=== PATIENT | male | born 1965 | race Caucasian/White ===

== ENCOUNTER 2019-01-17 09:18 | Emergency (ER) | payer OTHER ==
[~2019-01-17] VITALS: Ht 152.4 cm; Wt 195.0 kg
[2019-01-17] MEDS ORDERED: ELIQUIS5 MG PO (09:33)
[2019-01-17] MEDS ORDERED: Carvedilol12.5 MG PO (09:33)
[2019-01-17] MEDS ORDERED: SPIR25 PO (09:33)
[2019-01-17] MEDS ORDERED: K-Dur10 MEQ PO (09:33)
[2019-01-17] MEDS ORDERED: MAGOXI400 PO (09:34)
[2019-01-17] MEDS ORDERED: LISI5 PO (09:34)
[2019-01-17] MEDS ORDERED: FURO40 PO (09:35)
[2019-01-17 10:20] LABS: BASOPHILS ABSOLUTE AUTO 0.02 K/mm3 (0.00-0.23); BASOPHILS PERCENT AUTO 0 % (0-2); EOSINOPHILS ABSOLUTE AUTO 0.17 K/mm3 (0.00-0.68); EOSINOPHILS PERCENT AUTO 3 % (0-6); Hematocrit 45.7 % (37.0-53.0); Hemoglobin 13.9 g/dL (13.5-17.5); IMMATURE GRAN ABSOLUTE AUTO 0.02 K/mm3 (0.00-0.10); IMMATURE GRAN PERCENT AUTO 0 % (0-1); LYMPHOCYTES ABSOLUTE AUTO 0.78 K/mm3 (0.84-5.20); LYMPHOCYTES PERCENT AUTO 12 % (21-46); MONOCYTES PERCENT AUTO 9 % (4-13); Mean Corpuscular HGB 32.6 pg (26.0-34.0); Mean Corpuscular HGB Conc 30.4 g/dL (31.5-36.5); Mean Corpuscular Volume 107 fL (80-100); Mean Platelet Volume 10.9 fL (9.1-12.4); NEUTROPHILS PERCENT AUTO 76 % (41-73); Platelet Count 193 K/mm3 (150-400); RDW Coefficient Variation 14.6 % (11.7-14.2); RDW Standard Deviation 56.7 fL (35.1-46.3); Red Blood Cell Count 4.27 M/mm3 (4.30-5.90); White Blood Cell Count 6.69 K/mm3 (4.00-11.30)
[2019-01-17 11:10] LABS: Alanine Aminotransfer (ALT/SGP 22 U/L (12-78); Albumin, Blood 3.2 g/dL (3.4-5.0); Albumin/Globulin Ratio 0.6 (0.8-1.8); Alk Phos 87 U/L (50-136); Anion Gap 3 mmol/L (6-16); Aspartate Aminotrans (AST/SGOT 18 U/L (12-37); Bilirubin, Total 0.7 mg/dL (0.1-1.0); Blood Urea Nitrogen 34 mg/dL (8-24); Bun/Creatinine Ratio 35.1 (12.0-20.0); CO2, Blood 33 mmol/L (21-32); Calcium, Blood 8.8 mg/dL (8.5-10.1); Chloride, Blood 102 mmol/L (98-108); Creatinine, Blood 0.97 mg/dL (0.60-1.20); Globulin, Blood 5.4 g/dL (2.2-4.0); Glomerular Filtration Rate >60 (60-); Glucose, Blood 160 mg/dL (70-99); Sodium, Blood 138 mmol/L (136-145); Total Protein, Blood 8.6 g/dL (6.4-8.2)
== END 2019-01-17 12:24 | disposition home or self-care (01) ==
LOC: ER 09:18
PROVIDERS: Emergency Medicine
DX: I11.0 Hypertensive heart disease with heart failure (principal); I50.9 Heart failure, unspecified; I48.91 Unspecified atrial fibrillation; Z79.899 Other long term (current) drug therapy; F17.220 Nicotine dependence, chewing tobacco, uncomplicated
CPT/HCPCS: 36415; 71046; 80053; 83735; 83880; 85025; 93005; 93010; 96374; 99284-25; J1940

== ENCOUNTER 2019-01-20 10:14 | Inpatient (IN) | payer OTHER ==
[~2019-01-20] VITALS: Ht 185.4 cm; Wt 221.5 kg
[~2019-01-20 10:14] MED LIST: Carvedilol12.5 MG PO; ELIQUIS5 MG PO; FURO40 PO; K-Dur10 MEQ PO; LISI5 PO; MAGOXI400 PO; SPIR25 PO
[2019-01-20 10:50] LABS: BASOPHILS ABSOLUTE AUTO 0.01 K/mm3 (0.00-0.23); BASOPHILS PERCENT AUTO 0 % (0-2); EOSINOPHILS ABSOLUTE AUTO 0.15 K/mm3 (0.00-0.68); EOSINOPHILS PERCENT AUTO 2 % (0-6); Hematocrit 42.9 % (37.0-53.0); Hemoglobin 13.1 g/dL (13.5-17.5); IMMATURE GRAN ABSOLUTE AUTO 0.04 K/mm3 (0.00-0.10); IMMATURE GRAN PERCENT AUTO 1 % (0-1); LYMPHOCYTES ABSOLUTE AUTO 0.76 K/mm3 (0.84-5.20); LYMPHOCYTES PERCENT AUTO 11 % (21-46); MONOCYTES ABSOLUTE AUTO 0.69 K/mm3 (0.16-1.47); MONOCYTES PERCENT AUTO 10 % (4-13); Mean Corpuscular HGB 32.3 pg (26.0-34.0); Mean Corpuscular HGB Conc 30.5 g/dL (31.5-36.5); Mean Corpuscular Volume 106 fL (80-100); Mean Platelet Volume 10.8 fL (9.1-12.4); NEUTROPHILS ABSOLUTE AUTO 5.55 K/mm3 (1.96-9.15); NEUTROPHILS PERCENT AUTO 77 % (41-73); Platelet Count 176 K/mm3 (150-400); RDW Coefficient Variation 14.4 % (11.7-14.2); RDW Standard Deviation 56.6 fL (35.1-46.3); Red Blood Cell Count 4.05 M/mm3 (4.30-5.90)
[2019-01-20 11:13] LABS: Alanine Aminotransfer (ALT/SGP 27 U/L (12-78); Albumin, Blood 3.1 g/dL (3.4-5.0); Albumin/Globulin Ratio 0.6 (0.8-1.8); Alk Phos 85 U/L (50-136); Anion Gap 3 mmol/L (6-16); Aspartate Aminotrans (AST/SGOT 25 U/L (12-37); Bilirubin, Total 0.6 mg/dL (0.1-1.0); Blood Urea Nitrogen 31 mg/dL (8-24); Bun/Creatinine Ratio 31.5 (12.0-20.0); CO2, Blood 33 mmol/L (21-32); Calcium, Blood 8.6 mg/dL (8.5-10.1); Chloride, Blood 100 mmol/L (98-108); Creatinine, Blood 0.98 mg/dL (0.60-1.20); Globulin, Blood 5.1 g/dL (2.2-4.0); Glomerular Filtration Rate >60 (60-); Glucose, Blood 157 mg/dL (70-99); Sodium, Blood 136 mmol/L (136-145); Total Protein, Blood 8.2 g/dL (6.4-8.2); Troponin I <0.015 ng/mL (0.000-0.040)
--- NOTE | 2019-01-20 16:22 | NUR ---
PT ADMITTED PT ADMITTED IN STABLE CONDITION. VSS. PT ALERT & ORIENTED. PT & ORIENTED TO ROOM. CALL LIGHT IN REACH. PT DENIES OTHER NEEDS AT THIS TIME.
--- NOTE | 2019-01-20 18:25 | NUR ---
SHIFT SUMMARY NO CHANGES IN ASSESSMENT AT THIS TIME. VSS. WILL CONTINUE TO MONITOR UNTIL TURNOVER IS COMPLETE.
--- NOTE | 2019-01-21 01:01 | NUR ---
PATIENT HAS HAD TWO TELE EVENTS DROPPING IN TO A HR OF 35-39. FIRST TIME WAS SLEEPING AND AWOKE AND WENT BACK INTO THE 80'S. PATIENT NOW DROPPED TO 35-39 AND WENT RIGHT BACK INTO THE 90'S. PATIENT OBSERVED SLEEPING AND ROLLED TO HIS SIDE. SPOUSE PRESENT IN ROOM. PATIENT HAD REFUSED HIS CPAP THIS EVENING. WILL CONTINUE TO MONITOR.
--- NOTE | 2019-01-21 02:38 | NUR ---
EMPLOYMENT PROGRAMS ANALYST REPORTS HR INTO THE 30'S AND RIGHT BACK INTO THE 80'S REPORTING TO NURSE. WILL CONTINUE TO MONITOR.
--- NOTE | 2019-01-21 03:15 | NUR ---
MAIL HANDLER ASSISTANT REPORTS DROP IN HR INTO 20-30'S AND BACK WITH 4.2 SEC PAUSE TO 80'S RT CALLED IN TO SET UP HOSPITAL CPAP. RT PRESENT IN ROOM. WILL CONTINUE TO MONITOR.
--- NOTE | 2019-01-21 04:12 | NUR ---
SHIFT SUMMARY PATIENT HR DROPPED TO 35-39 X THREE WITH THE LONGEST PAUSE APPROX 10-15 SECONDS AND BACK INTO THE 80'S. ONE HR DROP WENT DOWN INTO THE 20'S FOR 4.2 SECOND AND BACK INTO THE 80'S. PATIENT HAD REFUSED TO WEAR CPAP FOR SLEEP. PATIENT WAS SLEEPING DURING THE EVENTS AND WAS STERNAL RUB TO AWAKEN. PATIENT REPORTS BEING IN A DEEP SLEEP. PATIENT EDUCATED TO WEAR CPAP AND RT NOTIFIED AND SETUP FOR PATIENT. ON CONTINUOUS PULSE OXIMETRY. AXOX 4 AND INDEPENDENT IN THE ROOM. PIV REMAINS INTACT. REPORTED BACK PAIN X ONE AND RECEIVED TYLENOL PER EMAR. MORBID OBESITY. ORTHOPHOTOGRAPHY TECHNICIAN REPORTS A-FIB PVC AVERAGE 80'S. SPOUSE PRESENT T/O SHIFT. CALL LIGHT IN REACH. BED IN LOWEST POSITION. WILL CONTINUE TO MONITOR UNTIL DAY SHIFT NURSE ASSUMES CARE.
[2019-01-21 05:53] LABS: Anion Gap 3 mmol/L (6-16); Blood Urea Nitrogen 31 mg/dL (8-24); Bun/Creatinine Ratio 28.2 (12.0-20.0); CO2, Blood 34 mmol/L (21-32); Calcium, Blood 8.5 mg/dL (8.5-10.1); Chloride, Blood 100 mmol/L (98-108); Glomerular Filtration Rate >60 (60-); Glucose, Blood 126 mg/dL (70-99); Potassium, Blood 4.5 mmol/L (3.5-5.5); Sodium, Blood 137 mmol/L (136-145)
--- NOTE | 2019-01-21 13:41 | NUR ---
PHYLICIA EPISODE PT HEART RATE DROPPED TO THE 30S AT 1335. PT SATS ALSO IN THE 80S AT THIS TIME. PT WAS WOKE UP & CPAP MASK READJUSTED. PT HR & SATS INCREASED TO NORMAL LIMITS AT THIS TIME. WILL CONTINUE TO MONITOR.
--- NOTE | 2019-01-21 17:33 | NUR ---
SHIFT SUMMARY THIS RN NOTICES A SLIGHT DIFFERENCE IN SWELLING OF PT ARMS/HANDS. PT STATES HE CAN TELL WELL. NYSTATIN ORDERED FOR YEAST IN ABD FOLDS. PT SCHEDULED TO BE TRANSFERED TO ROOM 310 FOR LARGER SHOWER & A BARIATRIC BED. NO OTHER CHANGES IN ASSESSMENT AT THIS TIME. VSS. WILL CONTINUE TO MONITOR UNTIL TURNOVER IS COMPLETE.
[2019-01-21 23:45] LABS: Magnesium, Blood 2.2 mg/dL (1.6-2.4)
[2019-01-21 23:46] LABS: Potassium, Blood 4.4 mmol/L (3.5-5.5)
--- NOTE | 2019-01-22 00:08 | NUR ---
AT APPROX 2245 PT PHYLICIA'D DOWN TO THE 30'S AND HAD AN 8-9 SECOND PAUSE. ALMOST IMMEDIATELY AFTER PT HAD ANOTHER 5 SECOND PAUSE. AFTER PT RETURNED TO AFIB IN THE 70'S. AGAIN AT 2315 AND 2350 AND 0000 PT PHYLICIA'D DOWN INTO THE 30'S AND HAD 3-4 SECOND PAUSES. NOTIFIED BOTH FREEDMAN PIN CHASER INITIALLY WHO ORDERED TO STOP COREG AND HAVE STAT MAG AND K DRAWN. AND DR. BAY LATER. DR. BAY STATED THAT PT PROBABLY DOES THIS ALL THE TIME AT HOME AND JUST TO KEEP MONITORING AT THIS TIME. MAG AND K WNL.
--- NOTE | 2019-01-22 05:16 | NUR ---
SHIFT SUMMARY PT TRANSFERED FROM ROOM 328 DUE TO NEEDING A LARGER SHOWER. LARGER BARIATRIC BED ALSO PLACED IN ROOM FOR PT. PT IS MORBIDLY OBESE. PT MUCH MORE COMFORTABLE THIS EVENING SLEEPING BUT STRUGGLED TO GET OUT OF THE BED THIS AM. AIR DEFLATED FROM MATTRESS PER REQUEST OF PATIENT. WHILE SLEEPING PT HAD SEVERAL EPISODES OF BRADYCARDIA IN THE 30'S AND THEN PT WOULD PAUSE. SEE PREVIOUS NOTE. LAST PAUSE AT APPROX 0000. MD AWARE. PT ONLY HAD 500 ML'S OF URINE OUT THIS EVENING. AND ONLY REPORTING VOIDING ONE TIME BEFORE PT TRANSFERED TO NEW ROOM. LUNGS SOUND CLEAR. PT DENIES ANY PAIN OR SOB. WORE CPAP THROUGH MOST OF THE NIGHT. CONTINUOUS BIOX ON. VSS. WILL CONTINUE TO MONITOR AND REPORT TO DAY RN.
[2019-01-22 05:49] LABS: International Normalized Ratio 1.08; Prothrombin Time Results 11.4 Sec (9.7-11.5)
[2019-01-22 06:07] LABS: Albumin, Blood 2.8 g/dL (3.4-5.0); Anion Gap 3 mmol/L (6-16); Blood Urea Nitrogen 33 mg/dL (8-24); Bun/Creatinine Ratio 30.8 (12.0-20.0); CO2, Blood 34 mmol/L (21-32); Calcium, Blood 8.5 mg/dL (8.5-10.1); Chloride, Blood 100 mmol/L (98-108); Creatinine, Blood 1.07 mg/dL (0.60-1.20); Glomerular Filtration Rate >60 (60-); Glucose, Blood 130 mg/dL (70-99); Phosphorus, Blood 4.2 mg/dL (2.5-4.9); Potassium, Blood 4.6 mmol/L (3.5-5.5); Sodium, Blood 137 mmol/L (136-145)
--- NOTE | 2019-01-22 10:21 | NUR ---
07:16- PER PCU EXPLOSIVE SPECIALIST THE PATIENT TELEMETY SHOWS AFIB AT 82 BPM. 07:30- PER PCU EXPLOSIVE SPECIALIST THE PATIENT'S TELEMETRY SHOWS A R-R OF 3.457 SEC PAUSE. 09:30- PER PCU EXPLOSIVE SPECIALIST THE PATIENT'S TELEMETRY SHOWS A R-R OF 3.816 SEC PAUSE. AT THE TIMES OF THE PAUSES, THE PATIENT HAD HIS CPAP ON, SLEEPING. HIS WAS AT THE BEDSIDE AND THE PCU EXPLOSIVE SPECIALIST CALLED TO NOTIFY THE RN. CONTINUOUS PULSE OXIMETRY IS IN PLACE.
--- NOTE | 2019-01-22 17:37 | NUR ---
PATIENT IS ALERT AND ORIENTED AND COOPERATIVE WITH CARE. NO COMPLAINTS OF PAIN. THE PATIENT HAS BEEN AT THE BEDSIDE ALL THROUGHOUT THE DAY, ASSISTING WITH HIS CARE. TELE IS IN PLACE WITH CONTINUOUS PULSE OXIMETRY. PCU TRAINING AND DEVELOPMENT DIRECTOR ALERTED THE RN THAT THE PATIENT HEART RHYTHM PAUSED TWICE FOR GREATER THAN 3 SECONDS THIS MORNING WHILE THE PATIENT WAS SLEEPING. OTHER THAN THOSE TWO EPISODES, THE PATIENT HAS BEEN AFIB BETWEEN 82-97 BPM PER PCU TRAINING AND DEVELOPMENT DIRECTOR. PATIENT WEARS THE CPAP WHILE SLEEPING. THE PATIENTS ASSISTS WITH CARING FOR THE PATIENT AND MEASURES HIS URINE AND HELPS HIM UP TO THE BATHROOM. WILL CONTINUE TO MONITOR.
[2019-01-23 04:45] LABS: BASOPHILS ABSOLUTE AUTO 0.02 K/mm3 (0.00-0.23); BASOPHILS PERCENT AUTO 0 % (0-2); EOSINOPHILS ABSOLUTE AUTO 0.21 K/mm3 (0.00-0.68); EOSINOPHILS PERCENT AUTO 3 % (0-6); Hemoglobin 12.6 g/dL (13.5-17.5); IMMATURE GRAN ABSOLUTE AUTO 0.02 K/mm3 (0.00-0.10); IMMATURE GRAN PERCENT AUTO 0 % (0-1); LYMPHOCYTES PERCENT AUTO 10 % (21-46); MONOCYTES ABSOLUTE AUTO 0.84 K/mm3 (0.16-1.47); MONOCYTES PERCENT AUTO 10 % (4-13); Mean Corpuscular HGB 32.5 pg (26.0-34.0); Mean Corpuscular HGB Conc 30.7 g/dL (31.5-36.5); Mean Corpuscular Volume 106 fL (80-100); Mean Platelet Volume 10.7 fL (9.1-12.4); NEUTROPHILS ABSOLUTE AUTO 6.17 K/mm3 (1.96-9.15); NEUTROPHILS PERCENT AUTO 77 % (41-73); Platelet Count 168 K/mm3 (150-400); RDW Standard Deviation 54.9 fL (35.1-46.3); Red Blood Cell Count 3.88 M/mm3 (4.30-5.90); White Blood Cell Count 8.06 K/mm3 (4.00-11.30)
--- NOTE | 2019-01-23 04:59 | NUR ---
SHIFT SUMMARY NO ACUTE CHANGES THIS SHIFT. PT PLEASANT AND COOPERATIVE. DENIES ANY SOB OR PAIN. REMAINS EDEMATOUS THROUGHOUT BUT APPEARS TO BE SLOWLY IMPROVING. TELEMETRY UNIT REMAINS IN PLACE, AFIB IN THE 70'S-80'S. PT WORE CPAP THROUGHOUT THE NIGHT. AT BEDSIDE. VSS. WILL CONTINUE TO MONITOR AND REPORT TO DAY RN.
[2019-01-23 05:01] LABS: Albumin, Blood 2.7 g/dL (3.4-5.0); Anion Gap 1 mmol/L (6-16); Blood Urea Nitrogen 31 mg/dL (8-24); Bun/Creatinine Ratio 31.4 (12.0-20.0); CO2, Blood 37 mmol/L (21-32); Calcium, Blood 8.4 mg/dL (8.5-10.1); Chloride, Blood 99 mmol/L (98-108); Creatinine, Blood 0.99 mg/dL (0.60-1.20); Glomerular Filtration Rate >60 (60-); Glucose, Blood 125 mg/dL (70-99); Phosphorus, Blood 3.8 mg/dL (2.5-4.9); Potassium, Blood 4.2 mmol/L (3.5-5.5); Sodium, Blood 137 mmol/L (136-145)
--- NOTE | 2019-01-23 18:01 | NUR ---
SHIFT SUMMARY NO CHANGES IN ASSESSMENT AT THIS TIME. VSS. PT DIURESSING WELL. ASSISTED WITH URINAL BY AT BEDSIDE. ABD FOLDS CLEANED & NYSTATIN APPLIED. NO TELE EVENTS THIS SHIFT. WILL CONTINUE TO MONITOR UNTIL TURNOVER IS COMPLETE.
--- NOTE | 2019-01-24 04:23 | NUR ---
SHIFT SUMMARY PT HAD UNEVENTFUL NIGHT. WOKE AT APPROX 0300 WITH A HEADACHE. MEDICATED W/ 650 MG TYLENOL. HEADACHE IMPROVED BUT PT HAS BEEN UNABLE TO GET BACK TO SLEEP YET. WHILE SLEEPING PT HAS WORN HIS CPAP. O2 SATS HAVE MAINTAINED ABOVE 90% AND PT HAS HAD NO CARDIAC EVENTS ON HIS TELEMETRY. PT VOIDING WELL. DENIES SOB. EDEMA TO BLE'S AND BUE'S CONTINUES TO IMPROVE. VERY LITTLE EDEMA REMAINS IN BUE'S. VSS. WILL CONTINUE TO MONITOR.
[2019-01-24 05:02] LABS: Anion Gap 1 mmol/L (6-16); Blood Urea Nitrogen 29 mg/dL (8-24); Bun/Creatinine Ratio 29.6 (12.0-20.0); CO2, Blood 39 mmol/L (21-32); Calcium, Blood 8.1 mg/dL (8.5-10.1); Chloride, Blood 98 mmol/L (98-108); Creatinine, Blood 0.98 mg/dL (0.60-1.20); Glomerular Filtration Rate >60 (60-); Glucose, Blood 141 mg/dL (70-99); Potassium, Blood 4.2 mmol/L (3.5-5.5); Sodium, Blood 138 mmol/L (136-145)
--- NOTE | 2019-01-24 06:25 | NUR ---
PAUSES PT THIS AM AT APPROX 0610 AND 0625 HAD A LITTLE OVER A 3 SECOND PAUSE AT EACH TIME AFTER HEART RATE BECOMING BRADYCARDIC IN THE 30'S. FOLLOWING PT IMMEDIATELY CAME BACK UP TO THE 70'S-80'S WITH RHYTHM CONTINUING TO BE AFIB. CPAP WAS ON, PT WAS SLEEPING AND ASYMPTOMATIC. CPAP ADJUSTED ON FACE. WILL CONTINUE TO MONITOR.
--- NOTE | 2019-01-24 16:57 | NUR ---
SHIFT SUMMARY 53 YR OLD MALE ADMITTED FOR ACUTE CHF EXACERBATION. FULL CODE. MONITORED VIA TELEMETRY (A FIB @ 76 BPM). HE MAY NEED A CPAP @ HOME. HAS EPISODES OF BRADYCARDIA FOLLOWED BY PAUSES. CONSULTING LENS COATING TECHNICIAN STATED TODAY THAT THIS IS NOT CONCERNING. HE DID STATE THAT THE PT MAY NEED A PACEMAKER IN 5-10 YRS. LASIX IS GIVEN TWICE A DAY, METALAZONE IN THE AM TO DIURESE THE PT. CARDIAC DIET. CPAP WHEN SLEEPING. HX: CHF, AFIB, HTN, SLEEP APNEA.
[2019-01-25 05:16] LABS: Anion Gap 1 mmol/L (6-16); Blood Urea Nitrogen 27 mg/dL (8-24); Bun/Creatinine Ratio 27.7 (12.0-20.0); CO2, Blood 40 mmol/L (21-32); Calcium, Blood 8.7 mg/dL (8.5-10.1); Chloride, Blood 94 mmol/L (98-108); Creatinine, Blood 0.98 mg/dL (0.60-1.20); Glomerular Filtration Rate >60 (60-); Glucose, Blood 122 mg/dL (70-99); Sodium, Blood 135 mmol/L (136-145)
--- NOTE | 2019-01-25 07:44 | NUR ---
01/25/19 0630 PT CHEERFUL AND HAS BEEN ON CPAP MOST OF NIGHT. STATES GENERALLY FEELING BETTER. STAYED WITH HIM ALL NIGHT. VITALS STABLE.
--- NOTE | 2019-01-25 16:17 | NUR ---
SHIFT SUMMARY 53 YR OLD MALE ADMITTED FOR ACUTE CHF EXACERBATION. FULL CODE. PLAN IS TO DIURESE THE PT AND THEN DC. ON ROOM AIR BY DAY, CPAP AT NIGHT. PT HAS APPOINTMENT TO SET UP PCP WHO WILL THEN REFER HIM FOR A SLEEP STUDY TO GET A CPAP AT HOME. CARVEDILOL INCREASED TO 12.5 MG TODAY. ZAROXOLYN FOR SWELLING (CHF), AND LASIX FOR DIURESING. BLISTERS ON LLE ARE IMPROVING DRAMATICALLY. PT IS MORBIDLY OBESE. SOB W/AMBULATION. STANDBY ASSIST TO BATHROOM. REDNESS IN SKIN FOLDS UNDER PANNUS AND GROIN AREA. ON TELEMETRY (AFIB @ 77 BPM). HX: CHF, AFIB, HTN, SLEEP APNEA
--- NOTE | 2019-01-26 04:12 | NUR ---
01/26/19 0415 AWAKE AND WATCHING TV. DENIES ANY S/S OR DICOMFORT. VITALS AND HEART MONITOR REMAIN STABLE. CPAP WAS ON EARLIER WHEN HE WAS SLEEPING. UNEVENTFUL NIGHT.
[2019-01-26 05:02] LABS: BASOPHILS ABSOLUTE AUTO 0.03 K/mm3 (0.00-0.23); BASOPHILS PERCENT AUTO 0 % (0-2); EOSINOPHILS ABSOLUTE AUTO 0.33 K/mm3 (0.00-0.68); EOSINOPHILS PERCENT AUTO 4 % (0-6); Hematocrit 42.1 % (37.0-53.0); Hemoglobin 13.2 g/dL (13.5-17.5); IMMATURE GRAN ABSOLUTE AUTO 0.02 K/mm3 (0.00-0.10); IMMATURE GRAN PERCENT AUTO 0 % (0-1); LYMPHOCYTES ABSOLUTE AUTO 0.94 K/mm3 (0.84-5.20); LYMPHOCYTES PERCENT AUTO 12 % (21-46); MONOCYTES ABSOLUTE AUTO 0.75 K/mm3 (0.16-1.47); MONOCYTES PERCENT AUTO 10 % (4-13); Mean Corpuscular HGB 32.9 pg (26.0-34.0); Mean Corpuscular HGB Conc 31.4 g/dL (31.5-36.5); Mean Corpuscular Volume 105 fL (80-100); Mean Platelet Volume 11.2 fL (9.1-12.4); NEUTROPHILS PERCENT AUTO 74 % (41-73); Platelet Count 179 K/mm3 (150-400); RDW Coefficient Variation 13.4 % (11.7-14.2); RDW Standard Deviation 52.1 fL (35.1-46.3); Red Blood Cell Count 4.01 M/mm3 (4.30-5.90); White Blood Cell Count 7.87 K/mm3 (4.00-11.30)
[2019-01-26 05:16] LABS: Anion Gap 2 mmol/L (6-16); Blood Urea Nitrogen 31 mg/dL (8-24); Bun/Creatinine Ratio 30.4 (12.0-20.0); CO2, Blood 39 mmol/L (21-32); Calcium, Blood 8.3 mg/dL (8.5-10.1); Chloride, Blood 96 mmol/L (98-108); Creatinine, Blood 1.02 mg/dL (0.60-1.20); Glomerular Filtration Rate >60 (60-); Glucose, Blood 129 mg/dL (70-99); Magnesium, Blood 1.9 mg/dL (1.6-2.4); Sodium, Blood 137 mmol/L (136-145)
[2019-01-26] MEDS ORDERED: MAGOX 400400 MG PO (11:45)
[2019-01-26] MEDS ORDERED: Bumetanide2 MG PO (11:45)
[2019-01-26] MEDS ORDERED: METO5 PO (11:47)
[2019-01-26] MEDS ORDERED: Nystop60 GM (11:49)
[2019-01-26] MEDS ORDERED: ENTRESTO 49 MG1 EACH PO (11:50)
[2019-01-26] MEDS ORDERED: SPIR25 PO (11:53)
[2019-01-26] MEDS ORDERED: ACET325 PO (11:59)
--- NOTE | 2019-01-26 13:11 | NUR ---
DISCHARGE SUMMARY DEMETRIO IS READY FOR DISCHARGE. WALKED IN HALLWAY WITH WALKER ON ROOM AIR AND DID WELL WITHOUT DYSPNEA. PIV REMOVED, TELE REMOVED. WORE CPAP HS. ON FLUID RESTRICTION AND DOING WELL WITH IT. GIVEN LOTS OF EDUCATION ON DAILY WEIGHING HIMSELF, THE IMPORTANCE OF FOLLOW UP APPOINTMENTS, AND MINIMIZING SALT INTAKE. DENIES PAIN. SBA TO BR. AT BS. BEING DISCHARGED W HH. LEAVING VIA WC WITH WITH DC PAPERWORK
== END 2019-01-26 13:47 | disposition home or self-care (01) | DRG 291 ==
LOC: ER 10:14 → ERHOLD 13:23 → MEDS 13:23 → ENPENDDIS 01-26 09:15 → MEDS 01-26 13:47
PROVIDERS: Emergency Medicine; Hospitalist; Internal Medicine; Nurse Practitioner Acute Care; ADMIT Family Medicine
DX: I11.0 Hypertensive heart disease with heart failure (principal); I50.21 Acute systolic (congestive) heart failure; Z87.891 Personal history of nicotine dependence; E66.01 Morbid (severe) obesity due to excess calories; I48.2 Chronic atrial fibrillation; Z79.01 Long term (current) use of anticoagulants; G47.33 Obstructive sleep apnea (adult) (pediatric)
CPT/HCPCS: 36415; 71046; 80048; 80053; 80069; 83036; 83735; 83880; 84132; 84484; 85025; 85610; 93005; 93010; 93306; 93970; 94660; 94664; 94760; 94762; 98960; 99285-25; A9270; J1940

== ENCOUNTER 2022-08-13 08:17 | Inpatient (IN) | payer OTHER ==
[~2022-08-13] VITALS: Ht 188 cm; Wt 161.5 kg
[~2022-08-13 08:17] MED LIST changes: +ACET325 PO; +AZIT250 PO; +Bumetanide2 MG PO; +ELIQUIS5 M2 PO; +ENTRESTO 49 MG1 EACH PO; +MAGOX 400400 MG PO; +METO5 PO; +Nystop60 GM
[2022-08-13 09:18] LABS: BASOPHILS ABSOLUTE AUTO 0.03 K/mm3 (0.00-0.23); BASOPHILS PERCENT AUTO 0 % (0-2); EOSINOPHILS ABSOLUTE AUTO 0.08 K/mm3 (0.00-0.68); EOSINOPHILS PERCENT AUTO 1 % (0-6); Hematocrit 50.3 % (37.0-53.0); Hemoglobin 17.1 g/dL (13.5-17.5); IMMATURE GRAN ABSOLUTE AUTO 0.04 K/mm3 (0.00-0.10); IMMATURE GRAN PERCENT AUTO 1 % (0-1); LYMPHOCYTES ABSOLUTE AUTO 0.99 K/mm3 (0.84-5.20); LYMPHOCYTES PERCENT AUTO 13 % (21-46); MONOCYTES ABSOLUTE AUTO 0.39 K/mm3 (0.16-1.47); MONOCYTES PERCENT AUTO 5 % (4-13); Mean Corpuscular HGB 32.7 pg (26.0-34.0); Mean Corpuscular Volume 96 fL (80-100); Mean Platelet Volume 11.2 fL (9.1-12.4); NEUTROPHILS ABSOLUTE AUTO 6.05 K/mm3 (1.96-9.15); NEUTROPHILS PERCENT AUTO 80 % (41-73); Platelet Count 197 K/mm3 (150-400); RDW Coefficient Variation 13.2 % (11.7-14.2); Red Blood Cell Count 5.23 M/mm3 (4.30-5.90); White Blood Cell Count 7.58 K/mm3 (4.00-11.30)
[2022-08-13 09:40] LABS: Albumin, Blood 3.2 g/dL (3.4-5.0); Albumin/Globulin Ratio 0.8 (0.8-1.8); Bilirubin, Total 1.3 mg/dL (0.1-1.0); Bun/Creatinine Ratio 33.6 (12.0-20.0); Calcium, Blood 8.6 mg/dL (8.5-10.1); Creatinine, Blood 1.16 mg/dL (0.60-1.20); Globulin, Blood 3.8 g/dL (2.2-4.0); Potassium, Blood 4.1 mmol/L (3.5-5.5)
--- NOTE | 2022-08-13 18:02 | NUR ---
PT ARRIVED TO THE FLOOR. ORIENTED TO THE ROOM. AT BEDSIDE.
--- NOTE | 2022-08-14 04:48 | NUR ---
A&OX4, PLEASANT, UP FREQUENTLY TO TOILET TO VOID DUE TO DIURETICS. PT A FIB WITH PHYLICIA SUSTAINING IN 50S AND DROPPING TO LOW 30S. MD NOTIFIED, ADJUSTED MORNING DOSE OF COREG. PER PATIENT, THIS HAPPENED DURING PREVIOUS ADMISSION WELL. CALLS APPROPRIATELY, UP AD MARISELA, TOLERATING CARES.
[2022-08-14 05:31] LABS: Hematocrit 45.7 % (37.0-53.0); Hemoglobin 15.6 g/dL (13.5-17.5); Mean Corpuscular HGB 32.5 pg (26.0-34.0); Mean Corpuscular HGB Conc 34.1 g/dL (31.5-36.5); Mean Corpuscular Volume 95 fL (80-100); Mean Platelet Volume 11.5 fL (9.1-12.4); Platelet Count 171 K/mm3 (150-400); RDW Coefficient Variation 13.1 % (11.7-14.2); RDW Standard Deviation 45.8 fL (35.1-46.3); White Blood Cell Count 6.99 K/mm3 (4.00-11.30)
[2022-08-14 06:37] LABS: Bun/Creatinine Ratio 35.7 (12.0-20.0); Calcium, Blood 8.3 mg/dL (8.5-10.1); Creatinine, Blood 1.12 mg/dL (0.60-1.20); Potassium, Blood 3.3 mmol/L (3.5-5.5)
--- NOTE | 2022-08-14 11:00 | NUR ---
Echocardiogram using 0.75ml of Definity contrast performed.
--- NOTE | 2022-08-14 16:14 | NUR ---
ASSUMED CARE OF PT FROM SURJIT GONZALES, AT ABOUT 1545.
--- NOTE | 2022-08-14 17:54 | NUR ---
SHIFT SUMMARY AFTER RESUMING CARE OF THE PT, NO ACUTE CHANGES HAVE OCCURRED. PT IS RESTING IN HIS ROOM WITH HIS , WATCHING MOVIES. HE HAS HAD NO C/O P/N/V. HE ALSO HAS NO C/O CHEST PAIN OR SOB. WILL REPORT TO ONCOMING NURSE.
--- NOTE | 2022-08-15 01:37 | NUR ---
NOTIFIED BY [employer] @ 0127 THAT PT HAD 3.94 SEC PAUSE ON MONITOR. A FEW MINUTES LATER PT HAD A A COUPLE SECOND RUN IN MID/HIGH 20'S. PT WAS CHECKED ON BOTH TIMES AND WAS ASYMPTOMATIC. VICENTE.
--- NOTE | 2022-08-15 04:34 | NUR ---
SHIFT SUMMARY NOC PT A/O X 4. PT HERE FOR CHF EXCASERBATION AND IS BEING DIURESED. PT IS ON TELE RUNNING AFIB WITH PVC'S @ 79 BPM. NOTIFIED BY MAGNETIC RESONANCE IMAGING COORDINATOR DURING SHIFT THAT PT HAD A 3.94 SEC PAUSE FOLLOWED BY SINUS PHYLICIA IN MID/HIGH 20'S. CHECKED ON PT AND PT WAS EASILY AROUSABLE AND ASYMPTOMATIC. PT HAD COREG D/C DURING DAY SHIFT. PT HAS RESTARTED ELIQUIS AFTER NOT TAKING FOR PREVIOUS 3-4 DAYS DUE TO LOSING INSURANCE. PT HAD XRAY WHICH SHOWED POSSIBLE BILATERAL ATRIAL THROMBI, BUT CT SCAN SHOWED NONE. PT ALSO HAS REDNESS UNDER PANNUS AND RX POWDER OBTAINED. PT PLEASANT AND COOPERATIVE WITH CARE WITH AT BEDSIDE DURING SHIFT. PT DAILY WT IS 161.5KG. PT CURRENTLY IN RESTING IN BED WITH BED IN LOWEST POSITION, AND CALL LIGHT WITHIN REACH. WCTM.
[2022-08-15 06:03] LABS: Bun/Creatinine Ratio 33.1 (12.0-20.0); Calcium, Blood 8.3 mg/dL (8.5-10.1); Potassium, Blood 3.6 mmol/L (3.5-5.5)
--- NOTE | 2022-08-15 17:34 | NUR ---
SHIFT SUMMARY NO ACUTE CHANGES DURING SHIFT. PT ALERT AND ORIENTED, CALLS APPROPRIATELY. PT REMAINS ON RA, SPO2 > 92%. PT INDEPENDENT IN ROOM. PT REMAINS AFIB 80'S ON TELE MONITOR. MEDICATED X 1 WITH TYLENOL FOR HEADACHE, EFFECTIVE. PT RECEIVING IV BUMEX BID. WILL CONTINUE TO MONITOR. CALL LIGHT WITHIN REACH.
--- NOTE | 2022-08-16 06:26 | NUR ---
DICTATING MACHINE TRANSCRIBER SUMMARY PT A/OX4. PLEASANT AND COOPERATIVE WITH CARE. SBP 93 AT BEGINNING OF SHIFT. CALL TO --HELD THE PM ENTRESTO; SEE NURSE NOTE. AM BP 105/90. MULTIPLE NOTIFICATIONS FROM TELE MONITOR TO REPORT PAUSES AND DROP IN RATE. PT AFIB W/PVC'S; 5.75 PAUSE; 3.24 PAUSE; PHYLICIA IN THE 20'S AND 30'S; 5 RUN EPISODE OF VTACH. PT DENIES CHEST PAIN/PRESSURE AND REMAINS ASYMPTOMATIC. PT ON STRICT I & 0'S. IS AT BEDSIDE. THIS AM PT COMPLAINING OF WORSENING RASH IN GROIN AND ASKING FOR ADDITIONAL MEDS; ADVISED I WOULD PASS INFORMATION ON TO DAY SHIFT NURSE. CALL LIGHT ACCESSIBLE.
[2022-08-16] MEDS ORDERED: ENTRESTO 49 MG1 EACH PO (14:24)
[2022-08-16] MEDS ORDERED: ALBU90OI INH (14:26)
--- NOTE | 2022-08-16 15:11 | NUR ---
DISCHARGE: PT DISCHARGED AT 1500 WITH IN AUTOMOBILE. ALL DISCHARGE INSTRUCTIONS GONE OVER WITH PT AND . BOTH STATED THEY UNDERSTOOD BOTH THE MEDICATION INSTRUCTIONS AND [place] FOLLOW-UP APPOINTMENT TO BE MADE. TELE D/C. IV TAKEN OUT BY MARTY RODARTE W/O COMPLICATIONS. BOTH PT AND STATED TO TELL EVERYONE HOW MUCH THEY APPRECIATED THE CARE THEY RECEIVED.
== END 2022-08-16 14:58 | disposition home or self-care (01) | DRG 291 ==
LOC: ER 08:17 → MEDS 08:18
PROVIDERS: Family Medicine; Nurse Practitioner Acute Care; Physician Assistant; ADMIT Internal Medicine
DX: I11.0 Hypertensive heart disease with heart failure (principal); I50.23 Acute on chronic systolic (congestive) heart failure; I48.20 Chronic atrial fibrillation, unspecified; Z68.42 Body mass index [BMI] 45.0-49.9, adult; G47.33 Obstructive sleep apnea (adult) (pediatric); I51.3 Intracardiac thrombosis, not elsewhere classified; R77.8 Other specified abnormalities of plasma proteins; E66.01 Morbid (severe) obesity due to excess calories; I49.3 Ventricular premature depolarization; I45.5 Other specified heart block; Z79.01 Long term (current) use of anticoagulants; Z79.899 Other long term (current) drug therapy; Z79.2 Long term (current) use of antibiotics; Z87.891 Personal history of nicotine dependence
CPT/HCPCS: 36415; 71046; 71260; 80048; 80053; 83880; 84443; 84484; 85025; 85027; 85379; 93005; 93010; 96374-59; 99285-25; A9270; C8929; G0378; Q9957; Q9967

== ENCOUNTER → 2022-10-29 | Outpatient (CLI) | payer OTHER ==
[~2022-10-29] MED LIST changes: +ALBU90OI INH
[2022-10-29 15:49] LABS: BASOPHILS ABSOLUTE AUTO 0.02 K/mm3 (0.00-0.23); BASOPHILS PERCENT AUTO 0 % (0-2); EOSINOPHILS ABSOLUTE AUTO 0.05 K/mm3 (0.00-0.68); EOSINOPHILS PERCENT AUTO 1 % (0-6); Hematocrit 44.3 % (37.0-53.0); Hemoglobin 14.7 g/dL (13.5-17.5); IMMATURE GRAN ABSOLUTE AUTO 0.02 K/mm3 (0.00-0.10); IMMATURE GRAN PERCENT AUTO 0 % (0-1); LYMPHOCYTES ABSOLUTE AUTO 0.86 K/mm3 (0.84-5.20); LYMPHOCYTES PERCENT AUTO 12 % (21-46); MONOCYTES ABSOLUTE AUTO 0.47 K/mm3 (0.16-1.47); MONOCYTES PERCENT AUTO 7 % (4-13); Mean Corpuscular HGB 31.4 pg (26.0-34.0); Mean Corpuscular HGB Conc 33.2 g/dL (31.5-36.5); Mean Corpuscular Volume 95 fL (80-100); Mean Platelet Volume 11.5 fL (9.1-12.4); NEUTROPHILS ABSOLUTE AUTO 5.81 K/mm3 (1.96-9.15); NEUTROPHILS PERCENT AUTO 80 % (41-73); Platelet Count 182 K/mm3 (150-400); RDW Coefficient Variation 14.6 % (11.7-14.2); Red Blood Cell Count 4.68 M/mm3 (4.30-5.90); White Blood Cell Count 7.23 K/mm3 (4.00-11.30)
[2022-10-29 16:58] LABS: Very Low Density Lipoprot Chol 10 mg/dL (6-32)
[2022-10-29 16:59] LABS: Alanine Aminotransfer (ALT/SGP 43 U/L (12-78); Albumin, Blood 3.6 g/dL (3.4-5.0); Albumin/Globulin Ratio 0.8 (0.8-1.8); Alk Phos 94 U/L (50-136); Anion Gap 4 mmol/L (6-16); Aspartate Aminotrans (AST/SGOT 28 U/L (12-37); Bilirubin, Total 1.1 mg/dL (0.1-1.0); Blood Urea Nitrogen 41 mg/dL (8-24); Bun/Creatinine Ratio 48.2 (12.0-20.0); CO2, Blood 26 mmol/L (21-32); Chloride, Blood 107 mmol/L (98-108); Cholesterol 155 mg/dL (50-200); Creatinine, Blood 0.85 mg/dL (0.60-1.20); Globulin, Blood 4.3 g/dL (2.2-4.0); Glomerular Filtration Rate 101 (60-); Glucose, Blood 131 mg/dL (70-99); HDL Cholesterol 51 mg/dL (>39); LDL/HDL RATIO 1.8; Low Density Lipoprotein Chol 94 mg/dL (0-110); Potassium, Blood 3.6 mmol/L (3.5-5.5); Sodium, Blood 137 mmol/L (136-145); Total Protein, Blood 7.9 g/dL (6.4-8.2); Triglycerides 52 mg/dL (30-160)
== END | disposition home or self-care (01) ==
LOC: LAB 12:15 → LAB SHORT 12:15
PROVIDERS: Family Medicine
DX: Z00.00 Encounter for general adult medical examination without abnormal findings (principal); Z13.6 Encounter for screening for cardiovascular disorders
CPT/HCPCS: 80053; 80061; 85025

== ENCOUNTER 2023-07-04 09:51 | Inpatient (IN) | payer OTHER ==
[~2023-07-04] VITALS: Ht 185.4 cm; Wt 214.0 kg
[~2023-07-04 09:51] MED LIST changes: +BUME2 PO; +BUMETANIDE2 M6 PO; +Cyclobenzaprine5 MG; +FLUO10 PO; +METO25ER; +NYSTATIN500000 UNI; +TAMS.4ER PO
[2023-07-04 10:39] LABS: BASOPHILS ABSOLUTE AUTO 0.03 K/mm3 (0.00-0.23); BASOPHILS PERCENT AUTO 0 % (0-2); EOSINOPHILS ABSOLUTE AUTO 0.08 K/mm3 (0.00-0.68); EOSINOPHILS PERCENT AUTO 1 % (0-6); Hematocrit 42.5 % (37.0-53.0); Hemoglobin 13.7 g/dL (13.5-17.5); IMMATURE GRAN ABSOLUTE AUTO 0.04 K/mm3 (0.00-0.10); IMMATURE GRAN PERCENT AUTO 1 % (0-1); LYMPHOCYTES ABSOLUTE AUTO 0.57 K/mm3 (0.84-5.20); LYMPHOCYTES PERCENT AUTO 8 % (21-46); MONOCYTES ABSOLUTE AUTO 0.61 K/mm3 (0.16-1.47); MONOCYTES PERCENT AUTO 8 % (4-13); Mean Corpuscular HGB 32.5 pg (26.0-34.0); Mean Corpuscular HGB Conc 32.2 g/dL (31.5-36.5); Mean Corpuscular Volume 101 fL (80-100); Mean Platelet Volume 10.1 fL (9.1-12.4); NEUTROPHILS ABSOLUTE AUTO 6.13 K/mm3 (1.96-9.15); NEUTROPHILS PERCENT AUTO 82 % (41-73); Platelet Count 196 K/mm3 (150-400); RDW Coefficient Variation 15.6 % (11.7-14.2); RDW Standard Deviation 58.1 fL (35.1-46.3); Red Blood Cell Count 4.21 M/mm3 (4.30-5.90); White Blood Cell Count 7.46 K/mm3 (4.00-11.30)
[2023-07-04 11:20] LABS: Albumin, Blood 2.9 g/dL (3.4-5.0); Albumin/Globulin Ratio 0.6 (0.8-1.8); Bilirubin, Total 1.4 mg/dL (0.1-1.0); Calcium, Blood 8.4 mg/dL (8.5-10.1); Creatinine, Blood 1.2 mg/dL (0.60-1.20); Globulin, Blood 4.7 g/dL (2.2-4.0); Potassium, Blood 3.9 mmol/L (3.5-5.5); Total Protein, Blood 7.6 g/dL (6.4-8.2)
[2023-07-04 16:51] VITALS: BP 100/64
--- NOTE | 2023-07-04 18:09 | NUR ---
SHIFT/ADMISSION SUMMARY Received pt from ED at 1530 via [facility] transport awake and alert x4. Pt able to get self up to recliner. Increased dyspnea noted. Generalized pitting edema. Unable to obtain accurate BP via machine. Manual BP obtained. Resp even nonlabored at rest on RA. Lung sounds diminished right lobe. Thoracentesis ordered. Pt and states last Eliquis 12/14 pm. Bariatric bed in room. Oriented to room and call light. at bedside. Home Cpap at bedside.
[2023-07-05 04:45] VITALS: BP 96/76
[2023-07-05 05:52] LABS: BASOPHILS ABSOLUTE AUTO 0.03 K/mm3 (0.00-0.23); BASOPHILS PERCENT AUTO 0 % (0-2); EOSINOPHILS PERCENT AUTO 1 % (0-6); Hematocrit 37.9 % (37.0-53.0); Hemoglobin 12.2 g/dL (13.5-17.5); IMMATURE GRAN ABSOLUTE AUTO 0.04 K/mm3 (0.00-0.10); IMMATURE GRAN PERCENT AUTO 1 % (0-1); LYMPHOCYTES ABSOLUTE AUTO 0.54 K/mm3 (0.84-5.20); LYMPHOCYTES PERCENT AUTO 7 % (21-46); MONOCYTES ABSOLUTE AUTO 0.74 K/mm3 (0.16-1.47); MONOCYTES PERCENT AUTO 10 % (4-13); Mean Corpuscular HGB 31.9 pg (26.0-34.0); Mean Corpuscular HGB Conc 32.2 g/dL (31.5-36.5); Mean Corpuscular Volume 99 fL (80-100); Mean Platelet Volume 10.2 fL (9.1-12.4); NEUTROPHILS ABSOLUTE AUTO 6.03 K/mm3 (1.96-9.15); NEUTROPHILS PERCENT AUTO 81 % (41-73); Platelet Count 189 K/mm3 (150-400); RDW Coefficient Variation 15.4 % (11.7-14.2); RDW Standard Deviation 56.2 fL (35.1-46.3); Red Blood Cell Count 3.83 M/mm3 (4.30-5.90); White Blood Cell Count 7.48 K/mm3 (4.00-11.30)
[2023-07-05 06:19] LABS: Bun/Creatinine Ratio 47.4 (12.0-20.0); Calcium, Blood 8.5 mg/dL (8.5-10.1); Creatinine, Blood 1.14 mg/dL (0.60-1.20); Potassium, Blood 3.9 mmol/L (3.5-5.5)
[2023-07-05 07:11] VITALS: BP 97/71
[2023-07-05 08:59] LABS: International Normalized Ratio 1.17; Prothrombin Time Results 12.2 Sec (9.7-11.5)
[2023-07-05] MEDS ORDERED: NYAMYC15 G1 TOP (09:49)
[2023-07-05] MEDS ORDERED: METO25ER PO (09:52)
[2023-07-05 15:00] VITALS: BP 105/73
--- NOTE | 2023-07-05 17:15 | NUR ---
SHIFT SUMMARY Pt remains A&O x3. VSS. Pain to edematous BLE managed with current regime. Generalized edema ongoing. Encourage to elevate extremities/ sit in bariatric recliner. Lung sounds diminished, greater on right. On RA. Able to get to BSC from bariatric bed with 1 person ast. BM this am. Voiding per urinal. Continue to monitor and diurese.
[2023-07-05 19:17] VITALS: BP 94/54
[2023-07-06] VITALS (8 sets, daily range): BP systolic 94–127; BP diastolic 62–95
--- NOTE | 2023-07-06 03:49 | NUR ---
END OF SHIFT SUMMARY PT A&O x4, VSS, AFEBRILE. PT ADMITTED FOR SOB, AND GENERALIZED ANASARCA. BP HAS BEEN TAKEN MANUALLY FOR BEST RESULTS. PT'S L LOWER EXTREMITY HAS A SMALL BLISTER FILLED WITH FLUID WHICH HAS BEEN WEEPING SEROUS DRAINAGE. L LOWER LEG WAS CLEANSED WITH NS, PAT DRY AND COVERED WITH EXU-DRY WRAPPED WITH GAUZE. LOWER EXTREMITIES ELEVATED. PT C/O DISCOMFORT TO BILAT LEGS. PRN TRAMADOL GIVEN AND EFFECTIVE. PT DENIED CHEST PAIN, NO SOB. PT'S ROOMING IN OVERNIGHT. PT ABLE TO MAKE NEEDS KNOWN. CALL LIGHT WITHIN REACH, WCTM.
[2023-07-06 05:57] LABS: BASOPHILS ABSOLUTE AUTO 0.02 K/mm3 (0.00-0.23); BASOPHILS PERCENT AUTO 0 % (0-2); EOSINOPHILS ABSOLUTE AUTO 0.14 K/mm3 (0.00-0.68); EOSINOPHILS PERCENT AUTO 2 % (0-6); Hematocrit 37.3 % (37.0-53.0); Hemoglobin 12.4 g/dL (13.5-17.5); IMMATURE GRAN ABSOLUTE AUTO 0.03 K/mm3 (0.00-0.10); IMMATURE GRAN PERCENT AUTO 0 % (0-1); LYMPHOCYTES ABSOLUTE AUTO 0.68 K/mm3 (0.84-5.20); LYMPHOCYTES PERCENT AUTO 10 % (21-46); MONOCYTES ABSOLUTE AUTO 0.79 K/mm3 (0.16-1.47); MONOCYTES PERCENT AUTO 11 % (4-13); Mean Corpuscular HGB 32.6 pg (26.0-34.0); Mean Corpuscular HGB Conc 33.2 g/dL (31.5-36.5); Mean Corpuscular Volume 98 fL (80-100); NEUTROPHILS ABSOLUTE AUTO 5.25 K/mm3 (1.96-9.15); NEUTROPHILS PERCENT AUTO 76 % (41-73); Platelet Count 182 K/mm3 (150-400); RDW Coefficient Variation 15.4 % (11.7-14.2); White Blood Cell Count 6.91 K/mm3 (4.00-11.30)
[2023-07-06 06:22] LABS: Bun/Creatinine Ratio 47.8 (12.0-20.0); Calcium, Blood 8.3 mg/dL (8.5-10.1); Creatinine, Blood 1.15 mg/dL (0.60-1.20); Potassium, Blood 3.5 mmol/L (3.5-5.5)
[2023-07-06] MEDS ORDERED: ALBU90OI INH (13:21)
[2023-07-06] MEDS ORDERED: INCRUSE ELLIPTA INH (13:25)
--- NOTE | 2023-07-06 18:14 | NUR ---
SHIFT SUMMARY- PT ALERT AND ORIENTED, SPOUSE AT THE BEDSIDE TO HELP WITH THE URINAL. PT IS BEING DIURESED MUCH HIS BP WILL ALLOW. MORNING DIURETIC HELD PER PARAMETERS. SPOKE TO MD BP WAS HIGH ENOUGH TO TAKE BUMEX EARLY FOR THE NOON DOSE, ORDER RECIEVED TO GIVE IT A LITTLE EARLY. BP WAS 110 THIS EVENING AND PT RECIEVED HIS EVENING DOSE. PT IN BED, CALL LIGHT IN REACH NO S&S OF DISTRESS NOTED. PAIN SEEMS WELL MANAGED WITH TRAMADOL PRN. SPOUSE AT THE BEDSIDE AND IS VERY INVOLVED WITH THE PT CARE. SHE HELPS HIM WITH THE URINAL AND WRITES THE VOLUME ON THE WHITE BOARD FOR STAFF TO DOCUMENT.
[2023-07-07 02:34] VITALS: BP 113/67
[2023-07-07 06:58] LABS: Bun/Creatinine Ratio 45.1 (12.0-20.0); Calcium, Blood 8.5 mg/dL (8.5-10.1); Creatinine, Blood 1.13 mg/dL (0.60-1.20); Potassium, Blood 3.2 mmol/L (3.5-5.5)
[2023-07-07 07:50] VITALS: BP 119/81
[2023-07-07] MEDS ORDERED: ENTRESTO 24 MG1 EACH PO (09:18)
[2023-07-07 13:50] VITALS: BP 108/66
--- NOTE | 2023-07-07 14:00 | NUR ---
PT HAD AN EVENT CAUSING A NEAR FALL- PT STATED HE NEEDE TO USE THE BSC. SPOUSE ASSISTED HIM TO GET THE COMMODE READY. PT IS A 1PA WITH TRANSFERS. PT STOOD TO PIVOT TRANSFER AND SIT ON THE COMMODE, HE SAID HE FELT DIZZY AND LEANED ON THE BED BRIEFLY. THE BED BREAKS ON THE BARIATRIC BED POPPED LOOSE AND THE BED BEGAN TO ROLL CAUSING THE PT LEFT FOOT TO SLIP UNDERNEATH THE COMMODE. NOW THE PT BOTTOM IS ON THE COMMODE AND ARMS ARE ON THE BED. MULTPILE STAFF ASSISTED TO GET THE PT INTO A LIFT SLING AND GET HIM SAFELY BACK TO THE BED. PT HAS HAD FLUID LEAKING FROM HIS LEFT COOL, A RESULT THE SKIN IS MORE FRAGILE, HE NOW HAS A SMALL QUARTER SIZED SKIN TEAR ON THE LEFT COOL IN THE AREA OF THE LEAK. MD ARRIVED AT THE BEDSIDE AND WITNESSED SOME OF THE EVENTS STAFF ATTEMPTED TO GET THE PT TO A SAFE LOCATION. VS CHECKED ONCE THE PT WAS BACK TO BED, DRESSING REPLACED ON THE PT LEFT COOL. NO CURRENT S&S OF DISTRESS. RN OCTOBER TO RESUME CARE OF PT AT THIS TIME.
[2023-07-07 16:21] VITALS: BP 114/69
[2023-07-07 19:21] VITALS: BP 125/80
--- NOTE | 2023-07-07 20:01 | NUR ---
SHIFT SUMMARY PATIENT WITH NEAR FALL THIS AFTERNOON WHILE THIS REMOTE SENSING PROGRAM MANAGER WAS AT A CLASS. SKIN TEAR TO LEFT LOWER LEG. NO OTHER INJURIES NOTED. PATIENT DESCRIBED SOME DIZZINESS UPON STANDING. BED IN LOW POSITION, CALL LIGHT IN REACH. HE IS ABLE TO MAKE NEEDS KNOWN.
[2023-07-08] VITALS (11 sets, daily range): BP systolic 83–126; BP diastolic 63–75
--- NOTE | 2023-07-08 05:24 | NUR ---
SHIFT SUMMARY - NO ACUTE CHANGES THROUGHOUT THIS SHIFT. PT REPORTED HE WANTED TO MAKE SURE HE RECEIVED HIS DIURETICS ON TIME TODAY, YESTERDAY HE DECLINED HIS LAST DOSE, IT WAS "TOO LATE IN THE EVENING." HE REPORTED HE "DIDN'T WANT TO BE UP ALL NIGHT." PT VOICED IMPROVEMENT IN EDEMA TO HIS BLE, RIGHT ARM, AND HANDS. SIGNIFICANT OTHER STAYED THE NIGHT LAST NIGHT. PT HAD ONE LOOSE BM AT THE BEGINNING OF THE SHIFT, AND WAS ABLE TO MINIMALLY ASSIST WITH TURNING FOR CLEANING - REQUIRED 3 STAFF IN THE ROOM FOR ASSISTANCE. CALL LIGHT WITHIN REACH. BED IN LOW POSITION. FLUIDS AT BEDSIDE. WILL CONTINUE TO MONITOR UNTIL AM SHIFT CHANGE.
[2023-07-08 06:15] LABS: Bun/Creatinine Ratio 44.1 (12.0-20.0); Calcium, Blood 8.3 mg/dL (8.5-10.1); Creatinine, Blood 1.18 mg/dL (0.60-1.20); Potassium, Blood 3.1 mmol/L (3.5-5.5)
--- NOTE | 2023-07-08 18:47 | NUR ---
SHIFT SUMMARY- D/T SAFETY ISSUES THE PT [facility] AM. WITHIN AN HOUR THE PT WAS C/O PAIN IN HIS BOTTOM, AND NUMBNESS AND TINGLING IN HIS LEGS. THE PT REQUESTED ANOTHER AIR BED. GIVEN THE PT STATUS WITH FLUID OVERLOAD AND VERY WEAK SKIN, HE WOULD BENIFIT FROM THE AIR BED, HOWEVER THERE IS NOT A BARRIATRIC VERSION OF THIS BED. SPOKE TO DR KINGSTON, PT WILL LIKELY BE HERE FOR ANOTHER TWO DAYS OR MORE. CALLED [employer] FOR ASSISTANCE LOCATING A BED. AN AIR MATRESS THAT WILL FIT THE FRAME OF THE BEDS CURRENTLY HERE HAS BEEN ORDERED AND SHOULD ARRIVE ROUGHLY BEFORE NOON TOMORROW. IN THE MEAN TIME THE PT HAS A PINK FOAM MATRESS COVER AND MULTPILE PILLOWS TO HELP ELEVATE THE EXTREMITIES. PT WAS SEEN BY CARDIOLOGY TODAY WHO
[2023-07-08 22:04] LABS: U Amphetamine Screen Not Detected; U Barbituate Screen Not Detected; U Benzodiazapine Screen Not Detected; U Buprenorphine Screen Not Detected; U Cannabinoids Screen Not Detected; U Cocaine Screen Not Detected; U Methadone Screen Not Detected; U Methamphetamine Screen Not Detected; U Opiates Screen Not Detected; U Oxycodone Screen Not Detected; U Phencyclidine Screen Not Detected
[2023-07-09 03:55] VITALS: BP 93/69
--- NOTE | 2023-07-09 05:55 | NUR ---
SHIFT SUMMARY. PATIENT IS A/OX4. PATIENT IN GOOD SPIRITS TONIGHT, AND PLEASANT. PATIENT NEEDS ASSISTANCE WITH URINATING- HAS HELPED PATIENT WITH URINAL T/O NIGHT. PATIENT CALL WHEN NEEDING TO USE THE BED GRIMALDO. PER REPORT FROM DAY SHIFT PATIENT STARTED TO NOT FEEL WELL ON THE COMMODE DURING THE DAY AND OPTED TO USE THE BEDPAN. PATIENT IS A TWO PERSON ASSIST WITH LIFT FOR BEDPAN. PATIENT CALLS APPROPRIATELY AND IS ABLE TO MAKE HIS NEEDS KNOWN. PATIENT IS TO BE RECEIVING NEW AIR BED MATTRESS TO FIT PATIENTS BED-CURRENT BED HAS BEEN ALARMING AND UNCOMFORTABLE, HAS EGG-CRATE PAD ON BED. PATIENTS LEFT LEG HAS BEEN LEAKING-EXU DRY AND GAUZE WRAP APPLIED AND CHANGED NEEDED. PALLIATIVE CONSULT WAS PUT IN YESTERDAY FOR CONSULT TODAY PER REPORT. PATIENT HAD SMALL PANIC ATTACK WHEN LAYING BACK TO ADJUST LIFT SHEET-PATIENT WAS ABLE TO SIT UP AND SELF SOOTHE-OFFERED THERAPUETIC COMMUNICATION AND LISTENING TO PATIENT. BED IS LOCKED IN THE LOWEST POSITION W/CALL LIGHT IN REACH.
[2023-07-09 06:21] LABS: Bun/Creatinine Ratio 42.7 (12.0-20.0); Calcium, Blood 8.3 mg/dL (8.5-10.1); Creatinine, Blood 1.31 mg/dL (0.60-1.20); Potassium, Blood 3.3 mmol/L (3.5-5.5)
[2023-07-09 07:42] VITALS: BP 93/79
--- NOTE | 2023-07-09 13:41 | NUR ---
Met with pt and twice today, but necessary care interrupted both times. The patient and his asked this RN both times to "Please return". I assured them I will.
[2023-07-09 15:12] VITALS: BP 89/68
--- NOTE | 2023-07-09 17:43 | NUR ---
SUMMARY- PT AAOX4 THIS SHIFT. LIFT ASSIST ONLY. PT'S BED CHANGED OUT THIS SHIFT TO NEW RENTAL BARIATRIC AIR BED. PT COMPLAINED OF BILAT LEG PAIN-CONTROLLED WITH EMAR MEDS.
[2023-07-09 19:34] VITALS: BP 136/57
[2023-07-10] VITALS (9 sets, daily range): BP systolic 63–119; BP diastolic 40–81
--- NOTE | 2023-07-10 03:39 | NUR ---
PT BLOOD PRESSURE WAS LOW THIS MORNING WHEN AIDE CHECKED IN ON RIGHT ARM. 68/54. I WENT INTO ROOM AND RECHECKED WITH A SMALLER CUFF THAT FIT HIS RIGHT ARM BETTER. IT WAS 73/40. PT USUALLY KEEPS THIS ARM ELEVATED ABOVE HIS HEAD WHEN HE SLEEPS AND HE STATES THAT HIS RIGHT ARM EVEN AT HOME IS LOWER THAN HIS LEFT ARM READINGS. LEFT ARM IS LARGER COMPARED TO RIGHT ARM WHICH HE STATES IS ALSO HIS NORM. CHECKED BLOOD PRESSURE ON LEFT UPPER ARM AND HIS READING WAS 104/73. PT STATES HE DOES NOT FEELL LIGHT HEADED AT ALL, PAIN TO LEFT ELBOW WITH ICY HOT PATCH IN PLACE.CALL LIGHT IN REACH. CARE CONTINUES
[2023-07-10 05:26] LABS: BASOPHILS ABSOLUTE AUTO 0.03 K/mm3 (0.00-0.23); BASOPHILS PERCENT AUTO 0 % (0-2); EOSINOPHILS ABSOLUTE AUTO 0.28 K/mm3 (0.00-0.68); EOSINOPHILS PERCENT AUTO 3 % (0-6); Hematocrit 36.3 % (37.0-53.0); IMMATURE GRAN ABSOLUTE AUTO 0.04 K/mm3 (0.00-0.10); IMMATURE GRAN PERCENT AUTO 0 % (0-1); LYMPHOCYTES ABSOLUTE AUTO 0.54 K/mm3 (0.84-5.20); LYMPHOCYTES PERCENT AUTO 6 % (21-46); MONOCYTES ABSOLUTE AUTO 1.07 K/mm3 (0.16-1.47); MONOCYTES PERCENT AUTO 11 % (4-13); Mean Corpuscular HGB 32.3 pg (26.0-34.0); Mean Corpuscular HGB Conc 33.1 g/dL (31.5-36.5); Mean Corpuscular Volume 98 fL (80-100); Mean Platelet Volume 10.1 fL (9.1-12.4); NEUTROPHILS ABSOLUTE AUTO 7.61 K/mm3 (1.96-9.15); NEUTROPHILS PERCENT AUTO 80 % (41-73); Platelet Count 162 K/mm3 (150-400); RDW Coefficient Variation 15.2 % (11.7-14.2); RDW Standard Deviation 54.5 fL (35.1-46.3); Red Blood Cell Count 3.72 M/mm3 (4.30-5.90); White Blood Cell Count 9.57 K/mm3 (4.00-11.30)
[2023-07-10 05:53] LABS: Bun/Creatinine Ratio 45.6 (12.0-20.0); Calcium, Blood 8.2 mg/dL (8.5-10.1); Creatinine, Blood 1.14 mg/dL (0.60-1.20); Percent Saturation 15.5 % (20.0-50.0); Potassium, Blood 3.4 mmol/L (3.5-5.5)
--- NOTE | 2023-07-10 16:16 | NUR ---
SHIFT SUMMARY: PATIENT A/OX4, ANSWER TO QUESTIONS APPROPRIATELY, PLEASANT AND COOPERATIVE c CARE. PATIENT CODE STATUS CHANGED TO DNR PER PATIENT REQUEST AND SPOUSE AT BEDSIDE. PATIENT REFUSED TO WEAR DNR PURPLE ARM BRACELET, PER PATIENT "IT'S A NEW AND DIFFICULT DECISION TO ME AND MY , I DON'T LIKE TO BE IN A CONSTANT REMINDING BY WEARING THAT BAND, IF YOU DON'T MIND I DON'T LIKE TO WEAR IT FOR NOW." THIS RN EDUCATE PATIENT BY USING THERAPIUTIC COMMUNICATION AND ACTIVE LISTENING TO HIS NEEDS. PATIENT IS APOLOGETIC, AND VERBALIZES UNDERSTANDING. DNR ARM BAND HANG OUTSIDE PATIENT ROOM. PATIENT DENIES CP/PRESSURE, SOB, DIZZINESS AND N/V. SBP IN THE 109-115 RANGES TAKEN ON L ARM, RECEIVED SCHEDULED MIDODRINE DOSE. PATIENT AND AT BEDSIDE REFUSED SCHEDULED AM DOSE OF ENTRESTO AND METOPROLOL. THIS RN EDUCATED PATIENT/ THE RISK AND BENEFITS OF REFUSING THE DOSE, BUT STILL CONTINUE TO REFUSED. PATIENT STILL ON TELE, AFIB HR IN THE 90'S-110'S THIS SHIFT. PT WORK c PATIENT MOBILITY IN BED TODAY, PATIENT WAS NOT ABLE TO TOLERATE SITTING UP D/T WEAKNESS, PT RECOMMENDED SNF. PATIENT IS CONT/INCON OF BOWELS/BLADDER USES URINAL c ASSISTANCE AND BEDPAN c 2-3 MAX ASSIST TO ROLL TO HIS SIDE AND USES LIFT c REPOSITIONING. PATIENT RECEIVED SCHEDULED MEDS PER EMAR. PIV TO LAC SALINE LOCKED. CALL LIGHT IN REACH.
[2023-07-11 02:29] VITALS: BP 104/60
[2023-07-11 05:42] LABS: BASOPHILS ABSOLUTE AUTO 0.04 K/mm3 (0.00-0.23); BASOPHILS PERCENT AUTO 1 % (0-2); EOSINOPHILS ABSOLUTE AUTO 0.32 K/mm3 (0.00-0.68); EOSINOPHILS PERCENT AUTO 4 % (0-6); Hematocrit 36.7 % (37.0-53.0); Hemoglobin 11.8 g/dL (13.5-17.5); IMMATURE GRAN ABSOLUTE AUTO 0.05 K/mm3 (0.00-0.10); IMMATURE GRAN PERCENT AUTO 1 % (0-1); LYMPHOCYTES ABSOLUTE AUTO 0.63 K/mm3 (0.84-5.20); LYMPHOCYTES PERCENT AUTO 7 % (21-46); MONOCYTES ABSOLUTE AUTO 1.16 K/mm3 (0.16-1.47); MONOCYTES PERCENT AUTO 13 % (4-13); Mean Corpuscular HGB 32.3 pg (26.0-34.0); Mean Corpuscular HGB Conc 32.2 g/dL (31.5-36.5); Mean Corpuscular Volume 101 fL (80-100); Mean Platelet Volume 10.3 fL (9.1-12.4); NEUTROPHILS ABSOLUTE AUTO 6.52 K/mm3 (1.96-9.15); NEUTROPHILS PERCENT AUTO 75 % (41-73); Platelet Count 141 K/mm3 (150-400); RDW Coefficient Variation 15.1 % (11.7-14.2); RDW Standard Deviation 56.5 fL (35.1-46.3); Red Blood Cell Count 3.65 M/mm3 (4.30-5.90); White Blood Cell Count 8.72 K/mm3 (4.00-11.30)
[2023-07-11 06:39] LABS: Bun/Creatinine Ratio 45.6 (12.0-20.0); Calcium, Blood 8.1 mg/dL (8.5-10.1); Creatinine, Blood 1.14 mg/dL (0.60-1.20); Potassium, Blood 3.7 mmol/L (3.5-5.5)
[2023-07-11 08:02] VITALS: BP 131/97
[2023-07-11 13:07] VITALS: BP 87/59
[2023-07-11 15:41] VITALS: BP 89/61
[2023-07-11 18:32] VITALS: BP 99/65
--- NOTE | 2023-07-11 19:01 | NUR ---
SHIFT SUMMARY: PT IS A 58 YEAR OLD MALE HERE FOR CHF EXACERBATION. HE IS ON A DIURETIC HOLIDAY TODAY PER DR. KINGSTON. HE HAS REMAINED IN BED TODAY DUE TO NOT WISHING TO GET UP. PT DID NOT COME BY AND EVALUATE THE PATIENT TODAY. STILL DETERMINING WHETHER PATIENT WILL BE GOING HOME ON HOSPICE OR TO SNF; PER RECOMMENDATION, BUT PATIENT IS REFUSING TO GO TO SNF. CONVERSTATION WITH NURSE ORACLE IDENTITY MANAGEMENT CONSULTANT AND PALLATIVE CARE PENDING TO HELP MAKE DECISION AND PLAN FOR DISCHARGE. PATIENT IS PLEASANT AND COOPERATIVE. HE MAKES HIS NEEDS KNOWN AND USES HIS CALL LIGHT APPROPRIATELY. HIS ENRRIQUE IS AT BEDSIDE AND IS ASSISTIVE IN HIS CARE AND COOPERATIVE WITH STAFF. NO SIGNS OR SYMPTOMS OF DISTRESS. PLAN OF CARE ONGOING,
[2023-07-11 19:56] VITALS: BP 89/59
[2023-07-12 03:52] VITALS: BP 96/65
--- NOTE | 2023-07-12 04:58 | NUR ---
SHIFT SUMMARY: PT A&OX 4. DENIES ANY CHEST PAIN/PRESSURE. HR A-FIB IN 80'S. BP CONTINUES TO BE SOFT WITH MAP > 65. ASYMPTOMATIC. O2 SATS MAINTAINED ON > 90% ON RA. BECOMES SOB WHEN LYING FLAT TO REPOSITION. ENCOURAGED TO USE CPAP AT [facility]. PT USES CPAP FOR SEVERAL HOURS THEN REMOVED. PT ENCOURAGED TO ALLOW STAFF TO REPOSITION FROM SIDE TO SIDE WITH PILLOWS. PT DECLINING TO REPOSITIONED OFF OF BACK. ALLOWING FOR BRIEF TO BE CHANGED. ATTENTIVE AT BEDSIDE, ASSISTING WITH USE OF URINAL. PT VOIDING TEA COLORED, CLEAR URINE. RESTING IN BED, CALL LIGHT IN REACH. BED IN LOW POSITION.
[2023-07-12 08:03] VITALS: BP 97/69
[2023-07-12 08:10] VITALS: BP 99/73
[2023-07-12 08:51] LABS: Bun/Creatinine Ratio 46.3 (12.0-20.0); Calcium, Blood 8.2 mg/dL (8.5-10.1); Creatinine, Blood 1.23 mg/dL (0.60-1.20); Potassium, Blood 4.1 mmol/L (3.5-5.5)
[2023-07-12 15:46] VITALS: BP 93/64
--- NOTE | 2023-07-12 17:37 | NUR ---
SHIFT SUMMARY: DEMETRIO IS A&OX4. VSS, BP SOFT BUT MAINTAINING CURRENT TREND. HE IS TOLERATING PO INTAKE WELL, IV TO LEFT AC PATENT. HE IS USING THE URINAL WITH ASSISTANCE. HE STATES HE IS ABLE TO MOVE HIMSELF IN BED FREQUENTLY TO PREVENT PRESSURE SORES. SPOUSE AT BEDSIDE. HE IS LYING IN BED WITH THE CALL LIGHT IN REACH. WCTM UNTIL REPORT IS GIVEN TO ACCOUNTANT MACHINE PROCESSING RN.
[2023-07-12 19:31] VITALS: BP 100/70
--- NOTE | 2023-07-13 00:41 | NUR ---
ASSUMED PT CARE FORM RN ON DAYSHIFT. A&OX4. LABILE MOOD. PLEASANT, SMILING, COOPERATIVE MAJORITY OF TIME. OCCSAIONAL OUTBURST OF ANGER INDICATING FRUSTRATION WITH CARE, QUICKLY APPOLOGIZES. DENIES SOB WITH O2 SATS MAINTAINED ON RA WHILE AWAKE. PT DERECK CPAP WHILE SLEEPING AFTER ENCOURAGEMENT GIVEN. DENIES CHEST PAIN. HR AFIB IN 80'S. BP'S SOFT, ASYMPTOMATIC. MAP > 65. VOIDING IN URINAL WITH ASSISTANCE OF . BOOSTED IN BED WITH ASSISTANCE. DECLINING REPOSITIONING OFF OF BACK AT THIS TIME. CALL LIGHT IN REACH. BED IN LOW POSITION.
[2023-07-13 04:37] VITALS: BP 98/69
--- NOTE | 2023-07-13 05:16 | NUR ---
SHIFT SUMMARY: ASSESSMENT REMAINS UNCHANGED. ASSISTING PT WITH REPOSITIONING IN BED. MEDICATED FOR PAIN IN LEFT ELBOW, SEE EMAR. ATTENTIVE AT BEDSIDE. NO ACUTE CHANGES NOTED AT THIS TIME. CALL LIGHT IN REACH. BED IN LOW.
[2023-07-13 05:45] LABS: Bun/Creatinine Ratio 57.1 (12.0-20.0); Creatinine, Blood 1.19 mg/dL (0.60-1.20); Potassium, Blood 3.9 mmol/L (3.5-5.5)
[2023-07-13 07:17] VITALS: BP 119/86
[2023-07-13 15:04] VITALS: BP 92/59
[2023-07-13 15:30] VITALS: BP 91/60
--- NOTE | 2023-07-13 18:14 | NUR ---
SHIFT SUMMARY PT A&O X 4. VSS ALTHOUGH BP RUNS SOFT BUT IS WITHIN EXISTING TRENDS THAT MD IS AWARE OF. MIDODRINE GIVEN PER EMAR. PT PARTICIPATED WITH PHYS THERAPY FROM BED TODAY. PT REFUSED TO GET UP TO CHAIR TODAY. PT'S BP WAS ABLE TO TOLERATE THE IV BUMEX TODAY. IS PLEASANT & COOPERATIVE WITH ALL CARE. CALL LIGHT WITHIN REACH. PLAN IS FOR REHAB WHEN READY FOR DC.
[2023-07-13 19:13] VITALS: BP 86/55
[2023-07-14 04:04] VITALS: BP 104/67
[2023-07-14 06:03] LABS: Bun/Creatinine Ratio 48.9 (12.0-20.0); Calcium, Blood 7.8 mg/dL (8.5-10.1); Creatinine, Blood 1.35 mg/dL (0.60-1.20); Potassium, Blood 4.3 mmol/L (3.5-5.5)
[2023-07-14 07:18] VITALS: BP 94/66
--- NOTE | 2023-07-14 08:23 | NUR ---
SHIFT SUMMARY PT IS A&OX4. VSS ON RA. PT REMAINS IN A-FIB WITH RATE CONTROL @ 77 PER TELEMETRY. C/O PAIN IN HIS LUE, MANAGED WITH PRN FROM EMAR. TOLERATING A CARDIAC DIET, GOOD H2O INTAKE. ON BEDREST, NOOB THIS SHIFT. X3 MAX ASSIST TO CLEAN PT UP. HELPS HIM USE URINAL, INCONTINENT AT TIMES, ALSO INCONTINENT OF A LARGE SOFT BMX1. PT BECOMES DYSPNEIC WITH ROLLING IN THE BED. SKIN IS RED AND WEEPING D/T HIS EDEMA T/O. PT IS ON A BARIATRIC BED. BED IN LOWEST POSITION, CALL LIGHT WITHIN REACH. IN RECLINER AT BEDSIDE T/O NOC. FIRE SAFETY CHECKS COMPLETED
[2023-07-14 09:41] VITALS: BP 98/63
[2023-07-14 15:41] VITALS: BP 101/68
[2023-07-14 19:24] VITALS: BP 100/55
--- NOTE | 2023-07-14 19:36 | NUR ---
SHIFT SUMMARY: NO ACUTE EVENTS. BP WAS TOO LOW TO GIVE CARDIAC MEDS THIS MORNING, BUT INCREASED TO 102/67 THIS AFTERNOON SO PT REQUESTED "THE MEDICINE THAT MAKES ME PEE" (BUMEX), WHICH WAS GIVEN SINCE IT IS GIVEN ONCE DAILY. ROLFER REPORTED PT HAD 8 BEATS OF V TACH AFTER BUMEX GIVEN, BUT HE WAS COMPLETELY ASYMPTOMATIC AND VS WERE STABLE. HE IS IN AFIB WITH BBB, RATE IN THE 80'S. AT BEDSIDE ALL DAY AND HELPS WITH HIS CARE. WORKED WITH PHYSICAL THERAPY.
[2023-07-15 03:11] VITALS: BP 99/73
--- NOTE | 2023-07-15 06:30 | NUR ---
SHIFT SUMMARY PT IS A&OX4, NO ACUTE CHANGES OVER NOC. VSS ON RA, HYPOTENSIVE. A-FIB IN THE 80'S PER TELEMETRY. NO SOB OR C/O CHEST PAIN/PRESSURE. C/O DISCOMFORT IN HIS LUE, NOTHING FOR PAIN REQUESTED. TOLERATING A CARDIAC DIET. ON BEDREST, NOOB THIS SHIFT. X2-3 MAX ASSIST TO REPOSITION OR CLEAN PT UP. HELPS PT USE URINAL IN BED, INCONTINENT AT TIMES. LARGE SOFT BM X1 IN BEDPAN. PT HAS EDEMA AND SKIN IS WEEPING AND REDDEND. PT IN BARIATRIC BED, BED IN LOWEST POSITION CALL LIGHT WITHIN REACH. AT BEDSIDE IN RECLINER T/O NOC. FIRE SAFETY CHECKS COMPLETE
[2023-07-15 07:29] VITALS: BP 110/77
[2023-07-15 10:06] VITALS: BP 89/66
[2023-07-15 13:48] VITALS: BP 110/65
--- NOTE | 2023-07-15 16:24 | NUR ---
SHIFT SUMMARY- PT ALERT AND ORIENTED, SPOUSE AT THE BEDSIDE AND ASSISTS WITH THE FREQUENT USE OF THE URINAL. PT IN BED, LIFT SHEET IN PLACE, PT IS ABLE TO MAKE HIS NEEDS KNOWN, CALL LIGHT IN REACH. PT HAS HAD 2 BMS TODAY AND MORE THAN 2000ML OUT IN URINE. IV BUMEX HELD THIS AM FOR LOW PRESSURE. NOON SBP WAS 110, CALLED DR MADDOX AND WAS GIVEN A VERBAL ORDER TO ADMINISTER AT THAT TIME. ALL OTHER BP MEDS WERE HELD THIS AM, AWARE. PT ON TELE, AFIB. IN BED, CALL LIGHT IN REACH, DECLINING REPOSITIONING ON AIR BED, NO CURRENT S&S OF DISTRESS NOTED.
[2023-07-15 18:38] VITALS: BP 115/64
[2023-07-15 20:44] VITALS: BP 138/100
[2023-07-16] VITALS (11 sets, daily range): BP systolic 94–108; BP diastolic 63–84
--- NOTE | 2023-07-16 07:58 | NUR ---
SHIFT SUMMARY PT A&OX4, VSS, WAS ABLE TO GIVE PT HIS ENESTRO DOSE TONIGHT. NO ACUTE CHANGES THIS SHIFT. C/O PAIN IN HIS LUE, JUST REQUESTED AN ICE PACK FOR IT. NO MEDICATION GIVEN FOR PAIN. TOLERATING A CARDIAC DIET, SNACKING T/O NOC. NOOB THIS SHIFT. X2-3 MAX ASSIST WITH REPOSITIONS AND CLEANING UP OF PT. PT'S ENRRIQUE HELPING HIM WITH URINAL. VOIDING LARGE AMOUNTS OF CLEAR LIGHT YELLOW URINE. NO BM THIS SHIFT. ON A BARIATRIC BED, IN THE LOWEST POSITION, CALL LIGHT WITHIN REACH. ENRRIQUE REMAINED AT BEDSIDE, ATTENTIVE TO PT T/O THE NOC.
[2023-07-16 09:18] LABS: Albumin, Blood 2.2 g/dL (3.4-5.0); Anion Gap 5 mmol/L (6-16); Blood Urea Nitrogen 59 mg/dL (8-24); Bun/Creatinine Ratio 55.1 (12.0-20.0); CO2, Blood 31 mmol/L (21-32); Calcium, Blood 7.8 mg/dL (8.5-10.1); Chloride, Blood 102 mmol/L (98-108); Creatinine, Blood 1.07 mg/dL (0.60-1.20); Glomerular Filtration Rate 80 (60-); Glucose, Blood 102 mg/dL (70-99); Phosphorus, Blood 3.7 mg/dL (2.5-4.9); Potassium, Blood 3.9 mmol/L (3.5-5.5); Sodium, Blood 138 mmol/L (136-145)
--- NOTE | 2023-07-16 11:30 | NUR ---
RECIEVED A CALL FROM TELE- PT IS HAVING EPISODES OF BRADYCARDIA DOWN TO THE 30'S. PT HAS BEEN MORE LETHARGIC TODAY WHEN COMPARED TO PREVIOUS DAYS. SPOKE TO DR MADDOX. PT PHYLICIA EPISODES SEEM TO BE A DROP TO THE THIRTYS WITH A SLOW CLIMB TO THE 50'S THEN BACK TO AFIB IN THE 70'S. DR DAWKINS. HE IS REVIEWING THE CHART, POSSIBLE TRANSFER TO PCU. PT IN BED STILL LETHARGIC, SLEEPING THROUGH BLADDER NEEDS (PER HE NEVER DOES THAT). HE DOES WAKE TO STAFF INTERACTIONS BUT DRIFTS BACK OFF TO SLEEP MID INTERACTION.
--- NOTE | 2023-07-16 16:55 | NUR ---
TRANSFER NOTE: Pt arrived to room PCU 11 from medical floor. at bedside. Pt is A/Ox4. States that he is starting to feel better. Tele shows HR in the 80's, Afib. BP stable at this time but will continue to monitor. LS diminished. BT positive. Pt states that he has been passing flatus and had a BM yesterday. Multiple blisters on skin. Redness in all folds, redness on R side abd. L al with reyna wrap dressing over open blister. Pt oriented to room, call light, unit and plan of care. in room and plans to stay with patient. Pt and educated on importance of wearing CPap with all sleep. Denies questions, verbalized understanding. Call light in reach. Will monitor.
--- NOTE | 2023-07-16 17:51 | NUR ---
PT TRANSFERED TO PCU 11- REPORT COMPLETED WITH SURJIT SELLERS. 2 RN SKIN CHECK COMPLETED WELL. SPOUSE AT THE BEDSIDE ALL BELONGINGS TRANSFERED WITH THE PT.
--- NOTE | 2023-07-16 18:34 | NUR ---
SHIFT SUMMARY: Pt transfered down from medical floor at around 1630. Apparently Pt had been lethargic throughout the day, dozing on and off. When he would doze off occasionally his HR would decreased down into the 30's. When placed back on CPAP, HR improved. When pt arrived to PCU 11 he was A/Ox4 and has remained this way since arrival. States that he is feeling better. BP has remained stable, HR has remained in afib, rate in the 80's. NO other changes since arrival to room. Call light in reach. at bedside. Will report to night RN.
[2023-07-17] VITALS (7 sets, daily range): BP systolic 94–115; BP diastolic 59–80
[2023-07-17 04:39] LABS: Albumin, Blood 2.2 g/dL (3.4-5.0); Anion Gap 4 mmol/L (6-16); Blood Urea Nitrogen 54 mg/dL (8-24); Bun/Creatinine Ratio 52.9 (12.0-20.0); CO2, Blood 30 mmol/L (21-32); Calcium, Blood 7.9 mg/dL (8.5-10.1); Chloride, Blood 102 mmol/L (98-108); Creatinine, Blood 1.02 mg/dL (0.60-1.20); Glomerular Filtration Rate 85 (60-); Glucose, Blood 124 mg/dL (70-99); Phosphorus, Blood 3.5 mg/dL (2.5-4.9); Potassium, Blood 4.2 mmol/L (3.5-5.5); Sodium, Blood 136 mmol/L (136-145)
--- NOTE | 2023-07-17 04:54 | NUR ---
SHIFT SUMMARY THIS RN ASSUMED CARE OF PATIENT AT 1900. PT A&O X4. ABLE TO MAKE NEEDS KNOWN. AT BEDSIDE T/O THE NIGHT ASSISTING PATIENT WITH URINAL. PT ON HOME CPAP FOR SLEEP BUT THIS RN NOTED ON MONITOR THAT PATIENT WAS DESATTING INTO THE 70-80'S, AND BEGAN TO HAVE BRADYCARDIC EPISODES WITH HR 30-40'S. RT SWITCHED TO FACILITY CPAP WITH HOME MASK, 6L BLEED IN USED WHILE ASLEEP TO MAINTAIN SPO2>92%. OTHERWISE NO OTHER ACUTE EVENTS. BP STABLE FOR THE MAJORITY OF THIS SHIFT. THIS RN SPOKE TO PREVIOUS DAYSHIFT RN ABOUT TREND OF BP DURING DAYSHIFT BEING TOO LOW TO GIVE IV BUMEX; SBP 115 THIS AM AFTER 0400. BUMEX GIVEN EARLY D/T CONTINUED FLUID RETENTION/EDEMA. REPOSITIONING Q2HRS WITH PILLOWS. LUE ELEVATED ON PILLOWS. EDEMA NOTED. BED IN LOWEST POSITION AND CALL LIGHT WITHIN REACH. THIS RN WILL REPORT TO ONCOMING DAYSHIFT RN.
--- NOTE | 2023-07-17 11:00 | NUR ---
CARE ASSUMPTION this rn assumed care at 0700. vital signs stable. patient is alert and oriented x4. perrla. see shift assessment for further detials. patient in room and helps patient assist to use urinal. patient repositioning every 2 hours. plan of care is up to date.
--- NOTE | 2023-07-17 12:27 | NUR ---
into chair patient sat in chair for about 30 mins and then wanted to get back in bed. patient worked with physical therapy from chair. patient not able to stand. patient did not tolerate sitting in the chair very well, patient stating it was not comforable. education provided to and patient on benefits of sitting in the chair, both verbalized understanding, but patient stated he is unable to tolerate it at this time. patient back into bed using the lift. patient resting in bed with at bedside.
--- NOTE | 2023-07-17 18:07 | NUR ---
SHIFT SUMMARY patient neuro has remained intact. vitals stable. tele afib in the 80s. patient when napping off and on today used bipap. no acute changes. plan of care is up to date. is in room at bedside.
[2023-07-18] VITALS (8 sets, daily range): BP systolic 89–110; BP diastolic 58–80
--- NOTE | 2023-07-18 04:45 | NUR ---
SHIFT SUMMARY PT A&O X4. ABLE TO MAKE NEEDS KNOWN. AT BEDSIDE T/O THE NIGHT. PT ON RA WHILE AWAKE. ON CPAP FOR NOC. PT AGAIN HAD SEVERAL EPISODES OF BRADYCARDIA WHILE SLEEPING WHILE DESATTING, IF MASK WAS MISPLACED. HR DECREASED TO 30'S. OTHERWISE PT HAS BEEN IN AFIB WITH HR 70-80'S. BP STABLE. AFEBRILE. REPOSITIONING Q2HRS PT ALLOWS. DRESSINGS C/D/I. BED IN LOWEST POSITION AND CALL LIGHT WITHIN REACH. THIS RN WILL REPORT TO ONCOMING DAYSHIFT RN.
[2023-07-18 04:56] LABS: Anion Gap 1 mmol/L (6-16); Blood Urea Nitrogen 45 mg/dL (8-24); Bun/Creatinine Ratio 48.8 (12.0-20.0); CO2, Blood 33 mmol/L (21-32); Calcium, Blood 7.6 mg/dL (8.5-10.1); Chloride, Blood 105 mmol/L (98-108); Creatinine, Blood 0.92 mg/dL (0.60-1.20); Glomerular Filtration Rate 96 (60-); Glucose, Blood 102 mg/dL (70-99); Phosphorus, Blood 3.2 mg/dL (2.5-4.9); Potassium, Blood 3.9 mmol/L (3.5-5.5); Sodium, Blood 139 mmol/L (136-145)
--- NOTE | 2023-07-18 17:44 | NUR ---
shift summary this rn assumed care at 0700. vital signs stable and have remained stable throughout the shift. tele afib 80s. spo2 >90% on room air. patient uses cpap when sleeping and is trying a mask from here. patient is alert and oriented x4. perrla. patient is able to make needs known and uses call light appropriately. patient is in room and assists with care. see shift assessment for further detials. patient had a full bed bath and linen change. plan is for patient to discharge to half-way facility when medically stable for rehab. patient and agree with this plan. plan of care is up to date and no acute changes throughout the shift. mahesh into see patient in the am and discussed the plan of care with the patient and patients .
[2023-07-19] VITALS (8 sets, daily range): BP systolic 94–111; BP diastolic 55–78
--- NOTE | 2023-07-19 05:02 | NUR ---
SHIFT SUMMARY NO ACUTE CHANGES OVERNIGHT. PT A&O X4. ABLE TO MAKE NEEDS KNOWN. SWITCHED TO HOSPITAL CPAP MASK FOR THIS SHIFT AND NO NOTED BRADYCARDIC/DYSPNEIC EPISODES NOTED. BP STABLE. AFIB WITH HR 70-80'S. ON RA WHILE AWAKE. REPOSITIONING Q2HRS. ASSISTING WITH URINAL AND STAYED AT BEDSIDE T/O THIS SHIFT. POWDER TO ABDOMINAL FOLDS. DRESSINGS ON LEFT COOL AND BACK C/D/I. BED IN LOWEST POSITION AND CALL LIGHT WITHIN REACH. THIS RN WILL REPORT TO ONCOMING DAYSHIFT RN.
--- NOTE | 2023-07-19 17:52 | NUR ---
SHIFT SUMMARY PT IS A&0X4, A LIFT PT, Q2 TURN, ON A BARIATRIC BED, USES THE URINAL, INC OF BOWEL, AND CALLS APPROPRAITELY. HE IS GOING TO HAVE PULSE OXYMETRY TEST TONIGHT TO QUALIFY HIM FOR OXYGEN WHEN HE DISCHARGES TOMORROW TO [facility]. HE WEARS THE CPAP WHEN ASLEEP AND WHEN AWAKE HE IS ON RA W/ SP02 >95%. ON TELE AFIB 70'S-80'S. HE HAS DENIED ANY ANGINA OR CHEST PRESSURE. NO ACUTE EVENTS. HIS HAS BEEN AT BEDSIDE AND HAS BEEN UPDATED ON CARE. FIRE IGNITION RISK HAS BEEN ASSESSED.
--- NOTE | 2023-07-19 21:43 | NUR ---
PT ADMINISTERED MEDICATIONS WHOLE WITH WATER. NO CHOKING NOTED OR DIFFICULTY SWALLOWING.
--- NOTE | 2023-07-20 05:43 | NUR ---
TALENT ACQUISITION ASSISTANT SUMMARY: A&Ox4. PLEASANT AND COOPERATIVE WITH CARE. CALLS APPROPRIATELY AND IS ABLE TO ABLE TO COMMUNICATE NEEDS EFFECTIVELY. AT BEDSIDE ALL NIGHT. NO C/O PAIN OR DISCOMFORT. OVERNIGHT SLEEP STUDY PERFORMED WITH NOTED DESATURATIONS INTO 60s AND BRADYCARDIA INTO 40s. LABS TO BE DRAWN THIS AM IN ANTICIPATION OF DC TO SNFT. SOFT BPs CONTINUED WITHOUT C/O DIZZINESS OR LIGHT-HEADEDNESS. NO ACUTE OVERNIGHT EVENTS. REPORT TO ONCOMING RN.
[2023-07-20 05:52] VITALS: BP 112/83
[2023-07-20 06:45] LABS: Bun/Creatinine Ratio 36.1 (12.0-20.0); Calcium, Blood 7.9 mg/dL (8.5-10.1); Creatinine, Blood 0.86 mg/dL (0.60-1.20); Potassium, Blood 4.3 mmol/L (3.5-5.5)
[2023-07-20 07:53] VITALS: BP 99/76
[2023-07-20 09:25] VITALS: BP 100/70
[2023-07-20] MEDS ORDERED: Acetaminophen325 M1 PO (11:00)
[2023-07-20] MEDS ORDERED: JARDIANCE10 MG PO (11:00)
[2023-07-20] MEDS ORDERED: BUME2 PO (11:00)
[2023-07-20] MEDS ORDERED: MIDO5 PO (11:01)
[2023-07-20] MEDS ORDERED: POTCHL20ER PO (11:01)
--- NOTE | 2023-07-20 12:09 | NUR ---
UPDATE PT REMAINS ALERT AND ORIENTED. VS STABLE. PT REMAINS AND ROOM AIR WITH SATS >90%. PT TO BE DISCHARGED TO [facility] THIS AFTERNOON. REPORT CALLED TO TOM AT [facility]. TRANSPORT TO BE HERE AT 1300
[2023-07-20 12:19] VITALS: BP 109/76
== END 2023-07-20 13:14 | DRG 291 ==
LOC: ER 09:51 → MEDS 09:52 → ER 15:16 → MEDS 15:20 → PCU 07-05 15:01 → MEDS 07-05 21:48 → PCU 07-16 16:30
PROVIDERS: Emergency Medicine; Student in an Organized Health Care Education/Training Program; ADMIT Family Medicine
DX: I11.0 Hypertensive heart disease with heart failure (principal); I50.23 Acute on chronic systolic (congestive) heart failure; I48.21 Permanent atrial fibrillation; E87.1 Hypo-osmolality and hyponatremia; N17.9 Acute kidney failure, unspecified; Z68.42 Body mass index [BMI] 45.0-49.9, adult; I47.20 Ventricular tachycardia, unspecified; Z66 Do not resuscitate; Z51.5 Encounter for palliative care; G47.33 Obstructive sleep apnea (adult) (pediatric); E66.01 Morbid (severe) obesity due to excess calories; G89.29 Other chronic pain; D64.9 Anemia, unspecified; D69.6 Thrombocytopenia, unspecified; R53.81 Other malaise; R00.1 Bradycardia, unspecified; E87.6 Hypokalemia; Z79.01 Long term (current) use of anticoagulants
CPT/HCPCS: 36415; 71046; 76604; 80048; 80053; 80069; 82728; 83540; 83550; 83735; 83880; 84484; 85025; 85610; 85730; 93005; 93010; 93306; 94660; 94760; 94762; 96374; 96375; 97110; 97161; 97530; 99285-25; A9270; G0378

== ENCOUNTER 2023-08-17 10:29 | Observation (INO) | payer OTHER ==
[~2023-08-17] VITALS: Ht 185.4 cm; Wt 200.2 kg
[~2023-08-17 10:29] MED LIST changes: +Acetaminophen325 M1 PO; +ENTRESTO 24 MG1 EACH PO; +INCRUSE ELLIPTA INH; +JARDIANCE10 MG PO; +METO25ER PO; +MIDO5 PO; +NYAMYC15 G1 TOP; +POTCHL20ER PO
[2023-08-17 11:09] LABS: BASOPHILS ABSOLUTE AUTO 0.04 K/mm3 (0.00-0.23); BASOPHILS PERCENT AUTO 1 % (0-2); EOSINOPHILS ABSOLUTE AUTO 0.35 K/mm3 (0.00-0.68); EOSINOPHILS PERCENT AUTO 5 % (0-6); Hemoglobin 12.6 g/dL (13.5-17.5); IMMATURE GRAN ABSOLUTE AUTO 0.02 K/mm3 (0.00-0.10); IMMATURE GRAN PERCENT AUTO 0 % (0-1); LYMPHOCYTES ABSOLUTE AUTO 0.55 K/mm3 (0.84-5.20); LYMPHOCYTES PERCENT AUTO 8 % (21-46); MONOCYTES ABSOLUTE AUTO 0.52 K/mm3 (0.16-1.47); MONOCYTES PERCENT AUTO 8 % (4-13); Mean Corpuscular HGB 32.1 pg (26.0-34.0); Mean Corpuscular HGB Conc 32.3 g/dL (31.5-36.5); Mean Corpuscular Volume 99 fL (80-100); NEUTROPHILS PERCENT AUTO 78 % (41-73); Platelet Count 202 K/mm3 (150-400); RDW Coefficient Variation 15.2 % (11.7-14.2); Red Blood Cell Count 3.93 M/mm3 (4.30-5.90); White Blood Cell Count 6.68 K/mm3 (4.00-11.30)
[2023-08-17 11:24] LABS: Albumin, Blood 2.6 g/dL (3.4-5.0); Albumin/Globulin Ratio 0.6 (0.8-1.8); Bilirubin, Total 1.5 mg/dL (0.1-1.0); Bun/Creatinine Ratio 38.5 (12.0-20.0); Calcium, Blood 8.5 mg/dL (8.5-10.1); Creatinine, Blood 0.88 mg/dL (0.60-1.20); Globulin, Blood 4.7 g/dL (2.2-4.0); Total Protein, Blood 7.3 g/dL (6.4-8.2)
[2023-08-17] MEDS ORDERED: Acetaminophen 325 MG TABLET PO PRN (17:55)
[2023-08-17] MEDS ORDERED: FLU VACC QS2023-24(6MOS UP)/PF 60 MCG/0.5 ML SYRINGE IM SCH (17:55)
[2023-08-17] MEDS ORDERED: Lactulose 20 GM/30 ML UDC PO SCH (18:00)
[2023-08-17] MEDS ORDERED: Albuterol 2.5 MG/3 ML VIAL INH PRN (18:00)
[2023-08-17 19:56] LABS: International Normalized Ratio 1.23; Prothrombin Time Results 12.8 Sec (9.7-11.5)
[2023-08-17 19:59] LABS: Bilirubin, Direct 0.8 mg/dL (0.0-0.3); Bilirubin, Indirect 0.8 mg/dL (0.1-0.7); Bilirubin, Total 1.6 mg/dL (0.1-1.0)
[2023-08-17 20:36] VITALS: BP 119/90
[2023-08-17] MEDS ORDERED: Apixaban 5 MG Tab PO SCH (21:00)
[2023-08-17] MEDS ORDERED: Docusate Sodium 100 MG Cap PO SCH (21:00)
[2023-08-17] MEDS ORDERED: Sacubitril/Valsartan 24 MG-26 MG Tab PO SCH (21:00)
[2023-08-17] MEDS ORDERED: LEVSOD25 PO (21:19)
--- NOTE | 2023-08-17 21:19 | NUR ---
NEW ADMIT, ATTEMPT TO INSERT #16 COUDET PENA CATH WITH STERILE TECHNIQUE. UNSUCCESSFUL PENIS IS INVERTED AND UNABLE TO FIND MEATUS TO INSERT CATH. PT VOICED HE WOULD TRY TO VOID INTO URINAL. PT NURSE AT BEDSIDE, VOICED UNDERSTANDONG OF SITUATION. CALL LIGHT IN REACH.
[2023-08-17] MEDS ORDERED: TRAM50 PO (21:21)
[2023-08-17] MEDS ORDERED: Hydrocortisone 2.5% Cream 30 GM Tube TOP PRN (23:55)
--- NOTE | 2023-08-18 04:48 | NUR ---
SHIFT SUMMARY PT ADMIT AT SHIFT CHANGE FOR HEPATIC ENCEPHELOPATHY. PT IS EXPERIENCING SEVERE EDEMA ON WHOLE BODY WHICH IS NON-PITTING AND WEEPING. PT ALSO RETAINING URINE. WAS AT BEDSIDE UPON ADMIT AND WAS HELPFUL IN HIS ADMISSION. PT IS PLEASANT AND COOPERATIVE WITH CARE, BUT DOES NOT LIKE KEEPING HIS CPAP IN PLACE. PUT IN ORDER FOR O2 THERAPY, RT ASSESSMENT, AND TELE AFTER SATING IN HIGH 60S-LOW 70S AND HR DROPPING TO 37 BPM THEN SPIKING TO 109 BPM. CPAP PRESSURE SETTINGS CURRENTLY 14-20.
[2023-08-18 05:11] VITALS: BP 95/72
[2023-08-18 07:31] VITALS: BP 96/57
[2023-08-18 08:25] LABS: BASOPHILS ABSOLUTE AUTO 0.04 K/mm3 (0.00-0.23); BASOPHILS PERCENT AUTO 1 % (0-2); EOSINOPHILS ABSOLUTE AUTO 0.51 K/mm3 (0.00-0.68); EOSINOPHILS PERCENT AUTO 6 % (0-6); Hematocrit 42.4 % (37.0-53.0); Hemoglobin 13.6 g/dL (13.5-17.5); IMMATURE GRAN ABSOLUTE AUTO 0.02 K/mm3 (0.00-0.10); IMMATURE GRAN PERCENT AUTO 0 % (0-1); LYMPHOCYTES ABSOLUTE AUTO 0.47 K/mm3 (0.84-5.20); LYMPHOCYTES PERCENT AUTO 6 % (21-46); MONOCYTES ABSOLUTE AUTO 0.66 K/mm3 (0.16-1.47); MONOCYTES PERCENT AUTO 8 % (4-13); Mean Corpuscular HGB 32.3 pg (26.0-34.0); Mean Corpuscular HGB Conc 32.1 g/dL (31.5-36.5); Mean Corpuscular Volume 101 fL (80-100); Mean Platelet Volume 9.9 fL (9.1-12.4); NEUTROPHILS ABSOLUTE AUTO 6.23 K/mm3 (1.96-9.15); NEUTROPHILS PERCENT AUTO 79 % (41-73); Platelet Count 190 K/mm3 (150-400); RDW Coefficient Variation 15.2 % (11.7-14.2); RDW Standard Deviation 56.4 fL (35.1-46.3); Red Blood Cell Count 4.21 M/mm3 (4.30-5.90); White Blood Cell Count 7.93 K/mm3 (4.00-11.30)
[2023-08-18 08:45] LABS: BASOPHILS PERCENT MAN 0 % (0-2); EOSINOPHILS ABSOLUTE MAN 0.63 K/mm3 (0.00-0.68); EOSINOPHILS PERCENT MAN 8 % (0-6); LYMPHOCYTES ABSOLUTE MAN 0.07 K/mm3 (0.84-5.20); LYMPHOCYTES PERCENT MAN 1 % (21-46); MONOCYTES ABSOLUTE MAN 0.39 K/mm3 (0.16-1.47); MONOCYTES PERCENT MAN 5 % (4-13); NEUTROPHILS ABSOLUTE MAN 6.81 K/mm3 (1.96-9.15); SEG NEUTROPHILS PERCENT MAN 86 % (41-73); TOTAL CELLS COUNTED 100
[2023-08-18 08:51] LABS: Albumin, Blood 2.5 g/dL (3.4-5.0); Albumin/Globulin Ratio 0.6 (0.8-1.8); Bilirubin, Total 1.6 mg/dL (0.1-1.0); Bun/Creatinine Ratio 39.3 (12.0-20.0); Calcium, Blood 8.5 mg/dL (8.5-10.1); Creatinine, Blood 0.84 mg/dL (0.60-1.20); Globulin, Blood 4.5 g/dL (2.2-4.0); Magnesium, Blood 2.1 mg/dL (1.6-2.4); Potassium, Blood 4.1 mmol/L (3.5-5.5)
[2023-08-18] MEDS ORDERED: Tamsulosin HCl 0.4 MG Cap PO SCH (09:00)
[2023-08-18] MEDS ORDERED: Bumetanide 1 MG Tab PO SCH ×2 (09:00)
[2023-08-18] MEDS ORDERED: Midodrine 5 MG Tab PO SCH (09:00)
[2023-08-18] MEDS ORDERED: Potassium Chloride 20 MEQ TabCR PO SCH (09:00)
[2023-08-18] MEDS ORDERED: FLUoxetine HCl 10 MG Cap PO SCH (09:00)
[2023-08-18] MEDS ORDERED: Empagliflozin 10 MG TAB PO SCH (09:00)
[2023-08-18 15:45] VITALS: BP 85/64
--- NOTE | 2023-08-18 15:56 | NUR ---
MET WITH PATIENT AND HIS KAREEM. DEMETRIO WAS SLEEPING FOR MUCH OF OUR VISIT. SHE IS CONCERNED WITH HIS PROGNOSIS AND ANXIOUS TO HAVE A PLAN IN PLACE FOR CARE. WE DISCUSSED A PENA, I SPOKE TO HER ABOUT APPROPIRATE INDICATIONS FOR PLACMENT AND WE DISCUSSED THIS WITH DR. KINGSTON. SHE WAS HESITANT TO DO THAT AT THIS POINT DUE TO BLOOD THINNERS AND 3 FAILED ATTEMPTS. DISCUSSED PROGNOSIS WITH THE PALATIVE CARE TEAM AND DR. KINGSTON. VISITED PATIENT AGAIN THIS AFTERNOON, TO HELP GIVE FAMILY A PLAN OF ACTION. WE TOUCHED ON HOSPICE IF IT CAME TO THAT. CARDIOLOGY WILL FOLLOW UP WITH HIM THIS AFTERNOON AND POSIBLY REPEAT AN ECHO.
[2023-08-18] MEDS ORDERED: Miconazole Nitrate 2% 85 GM PWD TOP SCH ×2 (16:11→21:00)
--- NOTE | 2023-08-18 18:17 | NUR ---
"Spiritual Care Request | Care lizz and Palliative Care Nurse Pt. is awake in bed on a BiPap when I visit. Pts. caregiver is at bedside. Both Pt. and caregivier welcome my visit. Facilitated a short life review where Pt. displayed evidence of confusion, particulary when asked how long he had been admitted to this hosptial. Pt. verbalized that his marlyn has not been an active part of his life. Listen with empathy and a caring presence. Prayed a prayer of blessing over this Pt. and a scriptural Benediction is read. Both Pt. and caregiver verbalized gratitude for the spiritual care visit."
--- NOTE | 2023-08-18 18:55 | NUR ---
PT AOX3 AND COOPERATIVE OF CARE. PT HAS NEEDED TO BE ON CPAP TODAY HE HAD MULTIPLE PAUSES REPORTED BY TELE WITH THE LONGEST BEING 5 SECONDS LONG. PT HAD LACTULOSE AND WAS ABLE TO HAVE A BM. PT WAS A HEAVY TWO PERSON TURN. WANTED TO SEE A SQUARE DANCE CALLER AND DR GRADY WAS KIND ENOUGH TO COME CONSULT FOR DR KINGSTON. AFTER CONSULT PALLIATIVE CARE TALKED WITH AND NEW ORDERS WERE PLACED. PT IS DOING WELL RESTING WITH CPAP IN PLACE. TELE AND BIOX MONITOR WERE DC'D PER DR GRADY.
--- NOTE | 2023-08-18 19:20 | NUR ---
Miesha came to speak to family. He reviewed with his pronosis. cardiolgy put him at kps score of 20%. He is concerned that he might pass tonight due to th cardiac pauses. He thinks his EF is dropping more. Plan at this time is to stay the course tonight to dc tell and monitoring stop lactulose. Hope is to optimize him and give comfort and let family rally. wanted kelleian he came to visit. She is going to leave and tell her children. expressed great releif and she felt he is declining and we disgused dignity and his great need for symptom managment. will add some roxinol if needed tonight. hope is to get some family time and closure. Review of plan with nursing. Pt will need to stay in hospital due to his size and frailty would not tolerate transfer. High risk for demise during transport. May not fit on regular gurney.
--- NOTE | 2023-08-18 19:47 | NUR ---
VISITOR PT'S AT BEDSIDE.
--- NOTE | 2023-08-19 06:27 | NUR ---
SHIFT SUMMARY PT ORDERS ENTERED FOR COMFORT CARE. HE USED HIS CPAP FOR THE FIRST HALF OF THE NIGHT. HIS SPENT THE NIGHT AT BEDSIDE. USED LIFT FOR REPOSITIONING. HE SLEPT WELL THROUGH THE NIGHT. UP AND PLEASANT AND COOPERATIVE WITH CARE THIS AM.
[2023-08-19] MEDS ORDERED: FLUoxetine HCl 10 MG Cap PO SCH (09:00)
[2023-08-19 09:32] VITALS: BP 74/56
--- NOTE | 2023-08-19 15:21 | NUR ---
"Spiritual Care | Comfort Care Pt. is awake in bed and welcomes my visit. Pt. displays evidence of being aware and engaged. Using pastorla care and theraputic listening, considered matters of life. Pt. displays evidence of being resigned to being on hospice. Listened with emapthy and a caring presence. Pt. and harvindere both verbalized gratitude for the spiritual care visit."
--- NOTE | 2023-08-19 17:17 | NUR ---
PT HAS BEEN DOING WELL. PT HAD A BARIATRIC BED TO REPLACE HIS REGULAR HOSPITAL BED. PT IS MUCH MORE COMFORTABLE. USED LIFT TO TRANSFER TO NEW BED. PT HAS ALSO HAD AT BEDSIDE. PT IS A HEAVY TWO TO THREE PERSON FOR CHANGES IN BED. HE DOES TRY TO HELP ROLL WHICH IS NOW EASIER WITH THE BIGGER BED. PT AOX4 AND CAN MAKE IS NEEDS KNOWN. PT HAS BEEN USING HIS OWN CPAP NOW. NO DISTRESS AT THIS TIME WILL CONTINUE TO MONITOR.
[2023-08-19 20:57] VITALS: BP 83/53
--- NOTE | 2023-08-20 05:31 | NUR ---
SHIFT SUMMARY - NO ACUTE CHANGES THROUGHOUT THIS SHIFT. PT'S STAYED WITH PT TONIGHT. PT WORE HIS CPAP FOR APPX 6 -7 HOURS LAST NOC. PT IS COMFORT CARE. PT REMAINS A&OX3, TOLERATED PO INTAKE WITHOUT COMPLICATIONS. FLUIDS AT BEDSIDE. CALL LIGHT WITHIN REACH. BED IN LOW POSITION. WILL CONTINUES TO MONITOR UNTIL AM SHIFT CHANGE.
[2023-08-20] MEDS ORDERED: Midodrine 5 MG Tab PO SCH (13:00)
[2023-08-20] MEDS ORDERED: Guaifenesin/Dextromethorphan Syrup 5 ML UDC PO PRN (15:15)
[2023-08-20] MEDS ORDERED: Benzonatate 100 MG Cap PO PRN (15:15)
--- NOTE | 2023-08-20 17:03 | NUR ---
SHIFT SUMMARY Pt remains A&Ox3 this shift. Denies pain. Comfort Care orders in place. stays at bedside to ast with care. Staff providing turns, hygiene, linen change. Soft BM today. Incontinent of urine. Brief in place. Pt c/o sinus congestion. Dr. Erazo aware with orders placed. Plan remains to discharge home with [facility]. DME to be delivered between -ThuAug 21. Per CM ambulance transfer at 1400.
[2023-08-20 19:36] VITALS: BP 84/58
--- NOTE | 2023-08-21 06:07 | NUR ---
SHIFT SUMMARY; PATIENT SLEPT MOST OF NIGHT. SPOUSE ATTENDED TO HIS NEEDS. SHE ASSISTED HIM WITH CHANGING HIS ATTENDS X 3 DURING NOC. REFUSED ASSIST FROM THIS RN OR MARTY SALTER. PATIENT WORE CPAP OFF AND ON DURING NIGHT. IS NOTED TO BE WATCHING TV MOST OF NIGHT.
[2023-08-21 07:24] VITALS: BP 98/58
--- NOTE | 2023-08-21 11:06 | NUR ---
[facility] TRANSPORT HERE TO TAKE PT TO PSYCH FACILITY. PIV DC'D WITH CATH TIP INTACT, NO REDNESS OR SWELLING NOTED. F/C TO REMAIN, DRAINED PRIOR TO TRANSPORT, INTACT & PATENT. DC PKT GIVEN TO TRANSPORT PERSONNEL TO GIVE TO FACILITY STAFF UPON ARRIVAL. HOSPITAL SECURITY REQUESTED BY TRANSPORT PERSONNEL TO TAKE OUT TO VEHICLE. PT TAKEN TO VEHICLE VIA W/C, SECURITY, SEWING MACHINE REPAIRER & PT'S SON ACCOMPANIED.
[2023-08-21] MEDS ORDERED: BENZ100A PO (11:12)
[2023-08-21] MEDS ORDERED: DOCU100 PO (11:14)
[2023-08-21] MEDS ORDERED: ROBITUSSIN DM PO (11:14)
[2023-08-21] MEDS ORDERED: MICONAZOLE NITR85 GM TOP (11:15)
[2023-08-21] MEDS ORDERED: HYDROcodone 5-APAP 325 TAB PO ONE (14:15)
--- NOTE | 2023-08-21 15:56 | NUR ---
DC HOME ON HOSPICE TRANSPORT HERE TO TAKE PT HOME. PT TRANSFERRED TO [facility] X 5 STAFF. DC PKT FOR HOSPICE STAFF GIVEN TO TRANSPORT PERSONNEL.
== END 2023-08-21 15:53 | disposition hospice, home (50) ==
LOC: ER 10:29 → MEDS 10:30 → ENPENDDIS 08-21 10:44 → MEDS 08-21 15:53
PROVIDERS: Emergency Medicine; ADMIT Student in an Organized Health Care Education/Training Program
DX: K70.31 Alcoholic cirrhosis of liver with ascites (principal); R44.3 Hallucinations, unspecified; K76.82 Hepatic encephalopathy; I11.0 Hypertensive heart disease with heart failure; I50.84 End stage heart failure; I50.23 Acute on chronic systolic (congestive) heart failure; G47.33 Obstructive sleep apnea (adult) (pediatric); I95.9 Hypotension, unspecified; I48.91 Unspecified atrial fibrillation; E80.6 Other disorders of bilirubin metabolism; E66.01 Morbid (severe) obesity due to excess calories; Z51.5 Encounter for palliative care; Z99.89 Dependence on other enabling machines and devices; Z79.01 Long term (current) use of anticoagulants; Z66 Do not resuscitate; Z79.899 Other long term (current) drug therapy; Z87.891 Personal history of nicotine dependence; Z68.43 Body mass index [BMI] 50.0-59.9, adult
CPT/HCPCS: 36415; 70450; 76700; 80053; 82140; 82247; 82248; 82607; 82728; 82746; 83540; 83550; 83735; 83880; 84443; 85025; 85610; 85730; 93005; 93010; 94660; 94760; 94762; 99285-25; A9270; G0378